=== PATIENT | male | born 1960 | race Caucasian/White ===

== ENCOUNTER 2016-11-23 06:49 | Emergency (ER) | payer OTHER ==
[2016-05-15 10:47] VITALS: BMI 33.4
[~2016-11-23 06:49] MED LIST: BAYER CHEWABLE81 MG PO; COREG 3.1253.125 MG PO; HYDROCODON-ACE1 EAC7 PO; IBUPROFEN800 MG PO; PLAVIX75 MG PO; ZANTAC150 MG PO; ZOCOR40 MG PO
[2016-11-23 07:21] LABS: BASOPHILS 0.6 % (0-2); EOSINOPHILS 3.4 % (0-7); HEMATOCRIT 55.8 % (42.0-54.0); HEMOGLOBIN 19.3 g/dL (13.5-17.5); IMMATURE GRANULOCYTES 0.3 % (0-5); LYMPHOCYTES 34.6 % (15-50); MCH 33.4 pg (26.0-34.0); MCHC 34.6 g/dL (31.0-37.0); MCV 96.7 fL (80.0-100.0); MEAN PLATELET VOLUME 10.2 fL (7.4-10.4); MONOCYTES 16.1 % (2-11); PLATELET COUNT 180 10x3/uL (130-400); RBC 5.77 10x6/uL (4.20-6.10); RDW 12.7 % (11.5-14.5)
[2016-11-23 07:37] LABS: ALBUMIN 3.3 g/dL (3.4-5.0); ALKALINE PHOSPHATASE 124 U/L (46-116); ALT (SGPT) 91 U/L (10-68); BILIRUBIN - TOTAL 0.69 mg/dL (0.2-1.3); CALC OSMOLALITY 278 mosm/kg (275-300); CALCIUM 8.9 mg/dL (8.5-10.1); CARBON DIOXIDE 25.6 mmol/L (21.0-32.0); CHLORIDE - SERUM 105 mmol/L (98-107); CREATININE - SERUM 1.4 mg/dL (0.6-1.3); GLUCOSE 113 mg/dL (74-106); POTASSIUM - SERUM 3.9 mmol/L (3.5-5.1); PROTEIN - SERUM 6.8 g/dL (6.4-8.2); SODIUM 138 mmol/L (136-145); UREA NITROGEN 19 mg/dL (7-18); eGFR NON AFRICAN AMERICAN 56 mL/min (90-120)
[2016-11-23 07:52] LABS: CHOL - HDL RATIO 2.8 ratio (2.3-4.9); CHOLESTEROL, TOTAL 144 mg/dL (0-200); CKMB 3.5 U/L (0.0-3.6); CREATINE KINASE 210 UL (21-232); HDL CHOLESTEROL 51 mg/dL (32-96); LDL CHOLESTEROL 75 mg/dL (0-100); LDL-HDL RATIO 1.5 ratio (1.5-3.5); TRIGLYCERIDE 91 mg/dL (30-200); TROPONIN-I < 0.017 ng/mL (0.000-0.060)
== END 2016-11-23 09:22 | disposition home or self-care (01) ==
LOC: D.ER 06:49
PROVIDERS: Emergency Medicine
DX: I20.8 Other forms of angina pectoris (principal)

== ENCOUNTER 2016-11-24 20:43 | Observation (INO) | payer OTHER ==
[~2016-11-24] VITALS: Ht 172.7 cm; Wt 97.7 kg
--- NOTE | ~2016-11-24 | HP ---
PATIENT: JILLIAN TINSLEY MEDICAL RECORD: [id number] ACCOUNT: [id number] LOCATION:[address] : [birth year] ADMISSION DATE: 11/24/16 HISTORY AND PHYSICAL EXAMINATION HISTORY OF PRESENT ILLNESS: This patient is a 56-year-old gentleman with a history of coronary artery disease status post intervention most recently percutaneous transluminal coronary angioplasty and stenting to the right. He has a history of hypertension. He has been having intermittent chest tightness and pressure. He is recovering from recent bronchitis. He has had a history of restenosis in the past. We were asked to see him concerning his cardiovascular status. PAST MEDICAL HISTORY: History of coronary artery disease as described above. Hypertension. Hyperlipidemia. Osteoarthritis. Gastroesophageal reflux disease. CURRENT MEDICATIONS: Plavix 75 milligrams every day. Carvedilol 3.125 milligrams twice a day. Simvastatin 40 milligrams every day. Aspirin 81 milligrams every day. [place] 5/325 milligrams every day. Motrin 800 milligrams three times a day. Zantac 150 milligrams every day. SOCIAL HISTORY: He is . He lives here in [place]. No set exercise program. He stays active. REVIEW OF SYSTEMS: Standard. PHYSICAL EXAMINATION: GENERAL: This is a pleasant gentleman in no acute distress. He appears stated age. He is complaining of headache from nitroglycerin. VITAL SIGNS: Blood pressure 116/65. Pulse 71 and regular. HEAD, EYES, EARS, NOSE, AND THROAT: Normocephalic, atraumatic. NECK: No jugular venous distention or bruit. HEART: Regular. LUNGS: Lung gomez clear. ABDOMEN: Soft, nontender. PULSES: 2+ with no edema. NEUROLOGIC: Grossly intact. ELECTROCARDIOGRAM: Without acute change. IMPRESSION AND PLAN: Recurrent angina within window of restenosis. Non-medicated stent most recently. Plan for angiography with intervention based upon the above. HISTORY AND PHYSICAL [id number] LAUREANOJILLIAN CURRY DEE DEE ESQUEDA MD CC: [id number] DICTATION DATE: 11/25/16 1200 CLAIMS TECHNICIAN: DM 11/25/16 1503 DIS IN 11/25/16 [facility] [address] [place] [address]
--- NOTE | ~2016-11-24 | HEMODYNAMI ---
PATIENT:JILLIAN TINSLEY MEDICAL RECORD: [id number] : 62 LOCATION:[facility] D.2119 ADMISSION DATE: 11/24/16 Generatedon:11/25/201610:36 Patient name: JILLIAN TINSLEY Patient #: [id number] SSN: [id number] : 1960 Date of study: 11/25/2016 Page: Of Hemodynamic Procedure Report Patient Data Patient Demographics Procedure consent was obtained First Name: JILLIAN Gender: Male Last Name: LAUREANO : 1960 Patient #: [id number] Age: 56 year(s) Race: SSN: [id number] Additional ID: [id number] Contact details [address]: [address] [place] [address] State: [place] City: [place] Zip code: [address] Past Medical History Allergies: No known allergies Admission Admission Data Admission Date: 11/24/2016 Admission Time: 23:41 Admit Source: Other Room #: D.2119 Height (in.): 68 BSA: 2.11 (m2) Height (cm.): 172.72 BMI: 32.75 (kg/m2) Weight (lbs.): 215.39 Weight (kg.): 97.7 Lab Results Lab Result Date: 11/25/2016 Lab Result Time: 0:00 Biochemistry Name Units Result Min Max BUN mg/dl 13 --(--*-)-- 7 18 Creatinine mg/dl 1.2 --(---*)-- 0.6 1.3 CBC Name Units Result Min Max Hemoglobin g/dl 17.1 --(---*)-- 13.5 17.5 Procedure Procedure Types Cath Procedure Diagnostic Procedure C [facility] w/Coronaries Miscellaneous Procedures Moderate Sedation up to 15 minutes Procedure Description Procedure Date Procedure Date: 11/25/2016 Procedure Start Time: 10:20 Procedure End Time: 10:33 Procedure Staff Name Function Kodak Manning MD Performing Physician Aries Boyer RT Scrub Divya Guerra RN Nurse Gena Kauffman RT Monitor Jimmy Mcgee RN Visitor Services Information Assistant Procedure Data Cath Procedure Fluoroscopy Diagnostic fluoroscopy Total fluoroscopy Time: 2.8 time: 2.8 min min Diagnostic fluoroscopy Total fluoroscopy dose: 630 dose: 630 mGy mGy Contrast Material Contrast Material Type Amount (ml) Isovue 300 114 Entry Location Entry Primary Successful Side Size Upsize Upsize Entry Closure Succes sful Closure Location (Fr) 1 (Fr) 2 (Fr) Remarks Device Remarks Femoral Right 5 Fr Exoseal artery Estimated blood loss: 10 ml Diagnostic catheters Device Type Used For End Catheter Placement Cordis 5Fr JL 4.0 Procedure Catheter (MP) Cordis 5Fr 3DRC Catheter Left Coronary (MP) Angiography Cordis 5Fr Pigtail Procedure Catheter (MP) Diagnostic Infinity 5Fr Procedure AR 2 MOD catheter Procedure Complications No complications Procedure Medications Medication Administration Route Dosage Oxygen NC 2 l/min Lidocaine 2% added to field 20 Heparin Flush Bag added to field 2 bags (1000units/500ml NS) Plavix P.O. 75 mg Versed I.V. 1 mg Fentanyl I.V. 50 mcg Versed I.V. 0.5 mg Solumedrol I.V. 125 mg Hemodynamics Rest BSA: 2.11 (m2) HGB: 17.1 (g/dl) O2 Consumption: Estimated: 243.15 (ml/min) O2 Co nsumption indexed: Estimated:115.24 (ml/min/m) Heart Rate: 61 (bpm) Pressure Samples Time Site Value (mmHg) Purpose Heart Use Rate(bpm) 10:27 LV 127/-6,13 Snapshot 81 10:28 AO 113/66(87) Pullback 81 10:28 LV 131/-6,16 Pullback 81 Gradients Valve Time Site 1 Site 2 Mean SEP/DFP Peak To Heart Use (mmHg) (sec/min) Peak Rate (mmHg) (bpm) Aortic 10:28 LV AO 16 19 18 81 131/-6,16 113/66(87) Calculations Valve P-P Mean Valve Index Valve Source Name Gradient Area Flow (cm2) Aortic 18 16 18 16 Snapshots Pre Cath Intra NCS Post Cath Vital Signs Time Heart Resp SPO2 etCO2 [id number] NIBP (mmHg) Rhythm Pain Sedation Rate (ipm) (%) (mmHg) (mmHg) Status Level (bpm) 10:09:44 68 19 94 0 0 127/83(102) NSR 0 (11) 10(A) , No pain 10:14:05 63 22 97 0 0 133/76(81) NSR 0 (11) 10(A) , No pain 10:18:23 59 16 97 0 0 111/66(80) NSR 0 (11) 10(A) , No pain 10:22:32 63 16 96 0 0 128/74(105) NSR 0 (11) 9(A) , No pain 10:26:46 84 16 95 0 0 149/79(94) NSR 0 (11) 9(A) , No pain 10:31:00 80 16 98 0 0 127/83(104) NSR 0 (11) 9(A) , No pain 10:32:33 78 16 98 0 0 126/76(102) NSR 0 (11) 9(A) , No pain Medications Time Medication Route Dose Verified Delivered Reason Notes Ef fectiveness by by 10:01:39 Plavix P.O. 75 mg Kodak Divya for St. Jadiel Guerra RN antiplatelet therapy 10:09:14 Oxygen NC 2 Kodak Divya Per l/min St. Jadiel Guerra RN physician 10:09:23 Lidocaine 2% added 20ml Kodak Kodak used for to vial Nigel Grundy procedure field MD EARLY 10:09:31 Heparin Flush added 2 Kodak Kodak [facility] (1000[facility]/500ml field MD EARLY NS) 10:19:02 Versed I.V. 1 mg Kodak Divya for sedation St. Jadiel Guerra RN, MD 10:19:20 Fentanyl I.V. 50 Kodak Divya for sedation mcg St. Jadiel Guerra RN, MD 10:21:41 Versed I.V. 0.5 Kodak Divya for sedation mg St. Jadiel Guerra RN, MD 10:31:13 Solumedrol I.V. 125 Kodak Divya Per mg [facility] Jadiel Guerra RN physician Procedure Log Time Note 9:30:26 Jimmy Mcgee RN sent for patient. Start room use. 9:55:45 Lab Result : BUN 13 mg/dl 9:55:45 Lab Result : Hemoglobin 17.1 g/dl 9:55:45 Lab Result : Creatinine 1.2 mg/dl 9:55:48 Lab results completed and on chart. 9:56:21 ACC Patient presents with Unstable Angina CCS Anginal Class 3--Marked limitation of physical activity, angina occurs with ordinary activity.. 9:56:24 Diagnostic Cath status Urgent 9:56:37 Time tracking: Regular hours 9:56:42 Plan of Care:Hemodynamics will remain stable., Cardiac rhythm will remain stable., Comfort level will be maintained., Respiratory function will remain adequate., Patient/ family verbilizes understanding of procedure., Procedure tolerated without complication., Recovers from procedure without complications.. 10:00:49 Patient received from Med II to CCL 1 Alert and oriented. Tansferred to table in Supine position. 10:00:50 Warm blankets applied, and sloan hugger turned on for patient comfort. 10:00:51 Correct patient and procedure confirmed by team. 10:00:54 Signed procedure consent form obtained from patient. 10:01:04 H&P Date Dictated: 11/24/2016 Within 30 days and on chart.. 10:01:09 Family in waiting room. 10:01:13 Patient NPO since Midnight. 10:01:30 Is the patient allergic to Iodine/contrast media? No. 10:01:34 Is patient on blood thinner?Yes 10:01:39 Plavix 75 mg P.O. was administered by Divya Guerra RN; for antiplatelet therapy; 10:01:39 ACC The patient was administered the following blood thiners within the last 24 hours: ACCPlavix 10:01:42 Patient diabetic? No. 10:01:52 Snore? Yes 10:01:54 Sleep apnea? No 10:02:28 Patient pain scale 0/10 ?. 10:02:37 Patient pain scale 5/10 pressure. 10:02:56 IV patent on arrival in right antecubital with 0.9% NaCl at O. 10:03:07 Right groin area was prepped with chlora-prep and draped in sterile fashion 10:03:10 Alarms reviewed by R. N. 10:03:11 Sharps counted by scrub and verified by R.N. 10:08:44 Vital chart was started 10:09:14 Oxygen 2 l/min NC was administered by Divya Guerra RN; Per physician; 10::23 Lidocaine 2% 20ml vial added to field was administered by Kodak Manning MD; used for procedure; 10:09:31 Heparin Flush Bag (1000units/500ml NS) 2 bags added to field was administered by Kodak Manning MD; used for procedure; 10:11:34 ECG and BP/O2 sat monitors applied to patient. 10:11:35 Baseline sample Acquired. 10::40 Full Disclosure recording started 10::44 Physician arrived 10:13:20 Use device set Femoral Dx 10:13:22 Acist Syringe opened to sterile field. 10:13:22 Bag Decanter opened to sterile field. 10:13:23 Medline Cath Pack opened to sterile field. 10:13:23 Terumo 5Fr Alto Sheath opened to sterile field. 10:13:23 St Luis 260cm J .035 wire opened to sterile field. 10:13:25 Acist Hand Control opened to sterile field. 10:13:25 Acist Manifold opened to sterile field. 10:13:27 Diagnostic Infinity 5Fr Multipack catheter opened to sterile field. 10:13:28 Tegaderm 4 x 4 opened to sterile field. 10:14:30 Patient Height : 68 cm 10:14:37 Patient Weight : 215.39 kg 10:14:43 Admit Source: Other 10:14:59 Procedure type changed to Cath procedure, Diagnostic procedure, LHC, LHC w/Coronaries, Miscellaneous Procedures, Moderate Sedation up to 15 minutes 10:18:53 --------ALL STOP TIME OUT------ 10:18:54 Final Timeout: patient, procedure, and site verified with staff and physician. All members of the team are in agreement. 10:18:57 Right groin site verified by team. 10:19:02 Versed 1 mg I.V. was administered by Divya Guerra RN; for sedation; 10:19:02 Sedation plan: IV Moderate Sedation Versed, Fentanyl 10:19:06 Physical assessment completed. ASA score P 2 - A patient with mild systemic disease as per Kodak Manning MD. 10:19:11 Zero performed for pressure channel P1 10:19:20 Fentanyl 50 mcg I.V. was administered by Divya Guerra RN; for sedation; 10:19:51 Procedure started. 10:20:14 Local anesthetic to right femoral artery with Lidocaine 2% by Kodak Manning MD.INITIAL ACCESS ONLY 10:20:44 A 5 Fr sheath was inserted into the Right Femoral artery 10:21:33 A Cordis 5Fr JL 4.0 Catheter (MP) was advanced over the wire and used for Procedure. 10:21:35 LCA angiography performed. 10:21:41 Versed 0.5 mg I.V. was administered by Divya Guerra RN; for sedation; 10:23:37 Catheter removed. 10:23:49 A Cordis 5Fr 3DRC Catheter (MP) was advanced over the wire and used for Left Coronary Angiography. 10:24:45 RCA angiography performed. 10:27:15 Catheter removed. 10:27:24 A Cordis 5Fr Pigtail Catheter (MP) was advanced over the wire and used for Procedure. 10:27:49 EF : 55 % 10:28:08 Catheter removed. 10:28:53 A Diagnostic Infinity 5Fr AR 2 MOD catheter was advanced over the wire and used for Procedure. 10:28:57 RCA angiography performed. 10:29:22 Catheter removed. 10:29:44 Cordis 5Fr Exoseal opened to sterile field. 10:30:09 Sheath removed intact; hemostasis achieved with Exoseal to the Right Femoral artery. 10:31:10 Procedure ended.(Physican Out) 10:31:13 Solumedrol 125 mg I.V. was administered by Divya Guerra RN; Per physician; 10:31:22 Fluoroscopy time 02.80 minutes. 10:31:30 Flurop Dose total: 630 10:31:30 Fluoroscopy dose: 630 mGy 10:31:45 Contrast amount:Isovue 300 114ml. 10:31:52 Sharps counted by scrub and verified by R.N. 10:31:55 Insertion/operative site no bleeding no hematoma. 10:31:58 Post-op/insertion site Right Femoral artery dressed using a 4 x 4 and Tegaderm. 10:32:04 Post right femoral artery:stable 10:32:07 Post Procedure Pulses reassessed and unchanged 10:32:11 Post-procedure physical assessment completed. ASA score P 2 - A patient with mild systemic disease as per Kodak Manning MD. 10:32:15 Post procedure rhythm: unchanged. 10:32:19 Estimated blood loss: 10 ml 10:32:21 Post procedure instruction explained to patient.Patient verbalizes understanding. 10:32:40 Procedure and supply charges have been captured, reviewed, submitted and are correct. 10:33:02 Procedure Complication : No complications 10:33:06 Vital chart was stopped 10:33:07 See physician's report for complete and final results. 10:33:09 Report given to [facility]. 10:33:16 Patient transfered to [facility] with Bed. 10:33:27 Procedure ended. 10:33:27 Full Disclosure recording stopped 10:33:30 End room use (Document Last) Device Usage Item Name Manufacture Quantity Catalog Hospital Part Current Minimal Lo t# / Number Charge Number Stock Stock Serial# Code Acist Acist 1 [id number] [id number] [id number] [id number] 20 Syringe Medical [employer] Inc Bag Microtek 1 2002S 158539 83516 888852 5 Decanter Medical Inc. Medline Cardinal 1 [id number] 007383 10761 803099 5 Cath Pack Health Terumo 5Fr Terumo 1 [id number] 018142 333786 913727 [address] Luis 1 360409 390919 385778 910980 30 260cm J .035 wire Acist Hand Acist 1 03393 754017 118844 562131 5 Control [employer] Inc Acist Acist 1 32460 816964 456762 678893 5 Manifold Medical Systems Inc Diagnostic Cardinal 1 [id number] 248237 60078 577075 30 Infinity Health 5Fr Multipack catheter Tegaderm 4 3M 1 1626W 560774 270582 494851 5 x 4 Cordis 5Fr Cardinal 1 438900 5 JL 4.0 Health Catheter (MP) Cordis 5Fr Cardinal 1 649570 5 3DRC Health Catheter (MP) Cordis 5Fr Cardinal 1 575224 5 Pigtail Health Catheter (MP) Diagnostic Cardinal 1 [id number] 048141 629969 666560 20 Infinity Health 5Fr AR 2 MOD catheter Cordis 5Fr Cardinal 1 EX500 014162 599972 058170 10 [employer] Signature Audit Touchet Stage Time Signature Unsigned Intra-Procedure 11/25/2016 Gena Kauffman 10:36:44 AM RT(R) Signatures Monitor : Gena Kauffman Signature : RT Date : Time : [place] [place] [address]
--- NOTE | ~2016-11-24 | OP ---
PATIENT NAME: JILLIAN TINSLEY MEDICAL RECORD: [id number] :62 LOCATION:D.M2 D.2119 ADMISSION DATE:11/24/16 SURGEON: DEE DEE ESQUEDA MD DATE OF PROCEDURE: 11/25/2016 PROCEDURES: Left heart catheterization. Selective coronary angiography. PROCEDURE IN DETAIL: After informed consent was obtained and after detailed explanation of risks, benefits, as well as alternative therapies, the patient elected to proceed with angiogram. The right femoral area was prepped and draped in a normal sterile fashion. The right femoral artery was cannulated via modified Seldinger technique with placement of 5-Greek sheath. All catheters exchanged through this sheath. 5-4 left and right Jossie, 5-4 pigtail catheter. The procedure was tolerated, and the patient was returned to the sullivan after the sheath was removed ExoSeal device placed. FINDINGS: Left ventriculography was performed in standard 30 degree SWEET view, normal wall motion, normal systolic function. CORONARY ANATOMY: LEFT MAIN: The left main was free of disease. LEFT ANTERIOR DESCENDING: The left anterior descending area of previous stenting is widely patent without evidence of restenosis. No progression of disease. CIRCUMFLEX: This is a left dominant system. This shows no evidence of restenosis. No progression of disease. RIGHT CORONARY ARTERY: Rudimentary nondominant vessel free of disease. IMPRESSION: Normal left ventricular function. No evidence of restenosis. No progression of major disease. Noncardiac etiology of chest pain. DEE DEE ESQUEDA MD CC: [id number] DICTATION DATE: 11/25/16 2300 CAREER AND GUIDANCE COUNSELOR: DM 11/25/16 1506 DIS IN 11/25/16 [facility] [address] [place] [address]
[2016-11-24 21:40] LABS: BASOPHILS 0.2 % (0-2); EOSINOPHILS 1.8 % (0-7); HEMATOCRIT 49.9 % (42.0-54.0); IMMATURE GRANULOCYTES 0.2 % (0-5); LYMPHOCYTES 23.5 % (15-50); MCH 33.1 pg (26.0-34.0); MCHC 34.1 g/dL (31.0-37.0); MCV 97.3 fL (80.0-100.0); MEAN PLATELET VOLUME 10.5 fL (7.4-10.4); MONOCYTES 16.5 % (2-11); NEUTROPHILS 57.8 % (40-80); PLATELET COUNT 153 10x3/uL (130-400); RBC 5.13 10x6/uL (4.20-6.10); RDW 12.6 % (11.5-14.5); WBC 9.8 10x3/uL (4.8-10.8)
[2016-11-24 21:58] LABS: ALBUMIN 2.9 g/dL (3.4-5.0); ALKALINE PHOSPHATASE 124 U/L (46-116); ALT (SGPT) 69 U/L (10-68); CALC OSMOLALITY 282 mosm/kg (275-300); CALCIUM 8.5 mg/dL (8.5-10.1); CARBON DIOXIDE 30.3 mmol/L (21.0-32.0); CHLORIDE - SERUM 106 mmol/L (98-107); CREATININE - SERUM 1.2 mg/dL (0.6-1.3); GLUCOSE 104 mg/dL (74-106); POTASSIUM - SERUM 3.8 mmol/L (3.5-5.1); PROTEIN - SERUM 6.2 g/dL (6.4-8.2); SODIUM 142 mmol/L (136-145); UREA NITROGEN 13 mg/dL (7-18); eGFR NON AFRICAN AMERICAN 67 mL/min (90-120)
[2016-11-24 22:09] LABS: CHOL - HDL RATIO 3.1 ratio (2.3-4.9); CHOLESTEROL, TOTAL 147 mg/dL (0-200); CKMB 1.3 U/L (0.0-3.6); CREATINE KINASE 128 UL (21-232); HDL CHOLESTEROL 48 mg/dL (32-96); LDL CHOLESTEROL 79 mg/dL (0-100); LDL-HDL RATIO 1.6 ratio (1.5-3.5); TRIGLYCERIDE 103 mg/dL (30-200); TROPONIN-I < 0.017 ng/mL (0.000-0.060)
--- NOTE | 2016-11-25 00:58 | NUR ---
ADMIT TO ROOM 2119 @ 0015 FROM ER VIA STRETCHER. ACCOMPANIED BY SPOUSE. ALERT/ORIENTED TO PERSON/PLACE AND TIME BUT VERY MEDICATED FROM JUST RECEIVING IV MORPHINE WHILE IN ER. ASSISTED TO BED. ADMISSION HISTORY AND ASSESSMENT COMPLETED WITH MINIMAL INPUT FROM PT DUE TO BEING MEDICATED AND HIS LEFT SOON HE WAS PLACED IN ROOM. TELEMETRY STARTED. SR 81. CALL LIGHT IN REACH.
[2016-11-25 01:09] VITALS: BP 115/56; Ht 172.7 cm; Wt 97.7 kg
[2016-11-25 04:00] VITALS: BP 116/65
[2016-11-25 08:54] LABS: BASOPHILS 0.2 % (0-2); EOSINOPHILS 1.5 % (0-7); HEMATOCRIT 50.6 % (42.0-54.0); HEMOGLOBIN 17.1 g/dL (13.5-17.5); IMMATURE GRANULOCYTES 0.3 % (0-5); LYMPHOCYTES 20.8 % (15-50); MCH 33.3 pg (26.0-34.0); MCHC 33.8 g/dL (31.0-37.0); MCV 98.4 fL (80.0-100.0); MEAN PLATELET VOLUME 11.4 fL (7.4-10.4); MONOCYTES 13.9 % (2-11); NEUTROPHILS 63.3 % (40-80); PLATELET COUNT 159 10x3/uL (130-400); RBC 5.14 10x6/uL (4.20-6.10); RDW 12.7 % (11.5-14.5)
[2016-11-25 08:56] LABS: WBC 12.5 10x3/uL (4.8-10.8)
[2016-11-25 09:13] VITALS: BP 128/78
--- NOTE | 2016-11-25 09:23 | NUR ---
Patient Name: JILLIAN TINSLEY Admission Status: ER Accout number: [id number] Admission Date: 11-24-2016 : 1960 Admission Diagnosis: Attending: ALYSSA Current LOS: 1 Anticipated DC Date: 11-25-2016 Planned Disposition: Home Primary Insurance: [employer] Discharge Planning Comments: * Is the patient Alert and Oriented? Yes 0 * How many steps to enter\exit or inside your home? NONE 0 * PCP [facility] SHAH, [facility] 0 * Pharmacy [facility] 0 * Preadmission Environment Home with Family 0 * ADLs Independent 0 * Equipment None 0 * Other Equipment [facility] 0 * List name and contact numbers for known caregivers / representatives who currently or will assist patient after discharge: DONA TINSLEY, SPOUSE, 0 * Community resources currently utilized None 0 * Please name any agencies selected above. NONE 0 * Additional services required to return to the preadmission environment? No 0 * Can the patient safely return to the preadmission environment? Yes 0 * Has this patient been hospitalized within the prior 30 days at any hospital? No 0 CM MET WITH PT AND SPOUSE IN ROOM TO DISCUSS DISCHARGE PLANNING AND NEEDS. PT SLEEPING, SPOUSE REPORTS PT TO BE MEDICATED. PT'S SPOUSE REPORTS PT LIVING AT HOME INDEPENDENTLY WITH SPOUSE. PT HAS NO MEDICAL EQUIPMENT AND NO OUTSIDE SERVICES ASSISTING IN THE HOME. CM DISCUSSED AVAILABILITY OF HOME HEALTH, REHAB SERVICES AND MEDICAL EQUIPMENT. PT'S SPOUSE DENIES DISCHARGE NEEDS, REPORTS SHE WILL BE TRANSPORTING PT FOR DISCHARGE HOME. CM DISCUSSED HAVING PT PLACED ON [facility] TRANSFER LIST FOR TRANSFER TO [facility]; PT'S SPOUSE REPORTS THAT REGISTRATION DISCUSSED THIS WITH THEM IN THE EMERGENCY DEPARTMENT AND PT DID NOT WANT TRANSFER TO [facility] AT ALL. PT REFUSES TO BE PLACED ON [facility] TRANSFER LIST, PLANS DISCHARGE HOME WITH SPOUSE. CM TO FOLLOW AND ASSIST IF NEEDED. Atmospheric Chemist: Sonny Nicholson
[2016-11-25 09:30] LABS: ANION GAP 14.8 mmol/L (8-16); CALCIUM 8.5 mg/dL (8.5-10.1); CARBON DIOXIDE 23.1 mmol/L (21.0-32.0); CREATININE - SERUM 1.1 mg/dL (0.6-1.3); POTASSIUM - SERUM 3.9 mmol/L (3.5-5.1)
--- NOTE | 2016-11-25 09:50 | NUR ---
PRE-OPS GIVEN. TO WINDING INSPECTOR BY BED.
[2016-11-25] MEDS ORDERED: MEDROL DOSE PACK4 MG PO (10:55)
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
[2016-11-25 11:59] VITALS: BP 119/72
--- NOTE | 2016-11-25 12:42 | NUR ---
BED REST UP. GROIN STABLE.
--- NOTE | 2016-11-25 13:13 | NUR ---
IV AND TELEMETRY DCD. DC PLANS GIVEN. UNDERSTANDING VOICED. ESCORTED TO CAR BY W/C.
== END 2016-11-25 13:13 | disposition home or self-care (01) ==
LOC: D.ER 20:43 → D.M2 23:41 → OBSVTIME 23:42 → D.M2 11-25 13:13
PROVIDERS: Emergency Medicine; ADMIT Internal Medicine Interventional Cardiology
DX: R07.89 Other chest pain (principal); I25.10 Atherosclerotic heart disease of native coronary artery without angina pectoris; Z95.5 Presence of coronary angioplasty implant and graft; I10 Essential (primary) hypertension; E78.5 Hyperlipidemia, unspecified; K21.9 Gastro-esophageal reflux disease without esophagitis; Z87.891 Personal history of nicotine dependence

== ENCOUNTER 2017-06-26 23:22 | Observation (INO) | payer SELFPAY ==
--- NOTE | ~2017-06-26 | HEMODYNAMI ---
PATIENT:JILLIAN TINSLEY MEDICAL RECORD: [id number] : 62 LOCATION:[facility] D.2102 ADMISSION DATE: 06/27/17 Generatedon:06/27/201713:38 Patient name: JILLIAN TINSLEY Patient #: [id number] SSN: [id number] : 1960 Date of study: 06/27/2017 Page: Of Hemodynamic Procedure Report Patient Data Patient Demographics Procedure consent was obtained First Name: JILLIAN Gender: Male Last Name: LAUREANO : 1960 Patient #: [id number] Age: 57 year(s) Race: SSN: [id number] Additional ID: [id number] Contact details Address: [address] [place] [address] State: [place] City: [place] Zip code: [address] Past Medical History Allergies: No known allergies Admission Admission Data Admission Date: 06/27/2017 Admission Time: 4:32 Room #: 2102 Procedure Procedure Types Cath Procedure Diagnostic Procedure [facility] w/Coronaries PCI Procedure Coronary Stent Coronary Stent Initial Procedure Description Procedure Date Procedure Date: 06/27/2017 Procedure Start Time: 13:18 Procedure End Time: 13:36 Procedure Staff Name Function Arben Erickson MD Performing Physician Sagrario Fam RT Scrub Danitza Brasher RN Nurse Gena Kauffman RT Monitor Katrina Nieto RT Lockstitcher Procedure Data Cath Procedure Fluoroscopy Diagnostic fluoroscopy Total fluoroscopy Time: 4.8 time: 4.8 min min Contrast Material Contrast Material Type Amount (ml) Isovue 300 82 Entry Location Entry Primary Successful Side Size Upsize Upsize Entry Closure Succes sful Closure Location (Fr) 1 (Fr) 2 (Fr) Remarks Device Remarks Femoral Right 5 Fr 6 Fr Exoseal artery Short Estimated blood loss: 10 ml Diagnostic catheters Device Type Used For End Catheter Placement MULTIPACK Pigtail 5 Fr Procedure catheter MULTIPACK JL 4.0 5Fr Procedure catheter MULTIPACK 3DRC 5Fr Procedure catheter Procedure Complications No complications Procedure Medications Medication Administration Route Dosage Oxygen NC 2 l/min Lidocaine 2% added to field 20 Heparin Flush Bag added to field 2 bags (1000units/500ml NS) 0.9% NaCl I.V. 100 ml/hr Versed I.V. 1 mg Fentanyl I.V. 50 mcg Heparin Bolus I.V. 4000 units Versed I.V. 1 mg Fentanyl I.V. 50 mcg Hemodynamics Rest Pre Cath Intra NCS Post Cath Vital Signs Time Heart Resp SPO2 etCO2 NIBP (mmHg) Rhythm Pain Sedation Rate (ipm) (%) (mmHg) Status Level (bpm) 13:13:38 64 16 93 41.7 129/72(109) NSR 0 (11) 10(A) , No pain 13:17:48 64 18 96 37.2 125/78(101) NSR 0 (11) 10(A) , No pain 13:22:08 77 15 95 43.2 125/80(111) NSR 0 (11) 10(A) , No pain 13:27:22 80 16 94 18.2 138/92(118) NSR 0 (11) 9(A) , No pain 13:32:27 82 16 93 22.8 123/80(97) NSR 0 (11) 9(A) , No pain 13:37:28 83 17 93 15.1 125/79(100) NSR 0 (11) 10(A) , No pain Medications Time Medication Route Dose Verified Delivered Reason Notes Effectiveness by by 13:12:38 Oxygen NC 2 Arben Bosch used for l/min Georgian Brasher RN procedure 13:12:45 Lidocaine 2% added 20ml Arben Theodore for local to vial Georgina Erickson MD anesthetic field 13:12:51 Heparin Flush added 2 Arben Arben used for Bag to bags Georgina Erickson MD procedure (1000units/500ml field NS) 13:13:00 0.9% NaCl I.V. 100 Arben Buffie Per physician ml/hr Georgina Brasher RN 13:18:42 Versed I.V. 1 mg Arben Reaie for sedation Georgina Brasher RN 13:18:48 Fentanyl I.V. 50 Arben Álvaroie for sedation mcg Georgina Brasher RN 13:23:10 Heparin Bolus I.V. 4000 Arben Buffie for verifi ed units Georgina Brasher RN anticoagulation with dr erickson 13:27:34 Versed I.V. 1 mg Arben Bosch for sedation Georgina Brasher RN 13:27:37 Fentanyl I.V. 50 Arben Bosch for sedation mcg Georgina Brasher RN Procedure Log Time Note 12:54:39 Sagrario Fam RT(R) sent for patient. Start room use. 12:54:54 Time tracking: Regular hours 12:55:00 Plan of Care:Hemodynamics will remain stable., Cardiac rhythm will remain stable., Comfort level will be maintained., Respiratory function will remain adequate., Patient/ family verbilizes understanding of procedure., Procedure tolerated without complication., Recovers from procedure without complications.. 13:02:26 Patient received from Med II to CCL 2 Alert and oriented. Tansferred to table in Supine position. 13:02:28 Warm blankets applied, and sloan hugger turned on for patient comfort. 13:02:28 Correct patient and procedure confirmed by team. 13:02:30 Signed procedure consent form obtained from patient. 13:02:41 H&P Date Dictated: 06/27/2017 Within 30 days and on chart.. 13:02:43 Pre-procedure instructions explained to patient. 13:02:48 Family in patients room. 13:02:55 Patient NPO since Midnight. 13:03:18 Patient allergic to No known allergies 13:03:20 Is the patient allergic to Iodine/contrast media? No. 13:03:22 Was the patient premedicated? Yes 13:03:47 Is patient on blood thinner?Yes 13:03:50 ACC The patient was administered the following blood thiners within the last 24 hours: ACCPlavix 13:10:12 Patient diabetic? No. 13:10:16 Snore? Yes 13:10:17 Sleep apnea? No 13:10:22 Dentures? No ? 13:10:28 Patient pain scale 0/10 ?. 13:10:34 IV patent on arrival in left forearm with 0.9% NaCl at KVO. 13:10:39 Lab results completed and on chart. 13:10:45 Right groin area was prepped with chlora-prep and draped in sterile fashion 13:10:47 Alarms reviewed by R. N. 13:10:47 Sharps counted by scrub and verified by R.N. 13:10:48 Physician paged 13:12:28 Vital chart was started 13:12:38 Oxygen 2 l/min NC was administered by Danitza Brasher RN; used for procedure; 13:12:45 Lidocaine 2% 20ml vial added to field was administered by Arben Erickson MD; for local anesthetic; 13:12:51 Heparin Flush Bag (1000units/500ml NS) 2 bags added to field was administered by Arben Erickson MD; used for procedure; 13:13:00 0.9% NaCl 100 ml/hr I.V. was administered by Danitza Brasher RN; Per physician; 13:13:34 Use device set Femoral Dx 13:13:36 ACIST Syringe (38178) opened to sterile field. 13:13:36 Bag Decanter (2002S) opened to sterile field. 13:13:37 Medline Cath Pack ([id number]) opened to sterile field. 13:13:37 SHEATH 5FR [place] (BUS174) opened to sterile field. 13:13:38 DIAGNOSTIC WIRE .035 260cm J wire (113478) opened to sterile field. 13:13:40 ACIST Hand Control (23709) opened to sterile field. 13:13:40 ACIST Manifold (24951) opened to sterile field. 13:13:41 DIAGNOSTIC Multipack 5Fr catheter set (HB9572) opened to sterile field. 13:13:42 Tegaderm 4 x 4 (1626W) opened to sterile field. 13:16:38 Zero performed for pressure channel P1 13:16:43 Zero performed for pressure channel P1 13:16:50 Zero performed for pressure channel P1 13:16:58 Zero performed for pressure channel P1 13:17:31 Physician arrived 13:17:31 --------ALL STOP TIME OUT------ 13:17:32 Final Timeout: patient, procedure, and site verified with staff and physician. All members of the team are in agreement. 13:17:34 Right groin site verified by team. 13:17:37 Physical assessment completed. ASA score P 2 - A patient with mild systemic disease as per Arben Erickson MD. 13:17:41 Sedation plan: IV Moderate Sedation Medication:Versed, Fentanyl 13:17:48 Procedure started. 13:17:49 Full Disclosure recording started 13:18:00 A MULTIPACK Pigtail 5 Fr catheter was advanced over the wire and used for Procedure. 13:18:14 Local anesthetic to right femoral artery with Lidocaine 2% by Arben Erickson MD.INITIAL ACCESS ONLY 13:18:25 A 5 Fr sheath was inserted into the Right Femoral artery 13:18:31 Zero performed for pressure channel P1 13:18:42 Versed 1 mg I.V. was administered by Danitza Brasher RN; for sedation; 13:18:48 Fentanyl 50 mcg I.V. was administered by Danitza Brashre RN; for sedation; 13:18:54 LV angiography performed. 13:18:57 LV gram done using SWEET 13:19:48 EF : 50 % 13:20:03 Catheter removed. 13:20:40 A MULTIPACK JL 4.0 5Fr catheter was advanced over the wire and used for Procedure. 13:20:45 LCA angiography performed. 13:21:30 Catheter removed. 13:21:36 A MULTIPACK 3DRC 5Fr catheter was advanced over the wire and used for Procedure. 13:22:53 GUIDE 6FR XBLAD 3.5 catheter ([id number]) opened to sterile field. 13:22:54 CHOICE PT Extra Support 182cm wire ([id number]) opened to sterile field. 13:22:55 INFLATOR Merit BasixCompak (SI1112) opened to sterile field. 13:22:56 SHEATH 6FR [place] (PID679) opened to sterile field. 13:23:00 Catheter removed. 13:23:02 Proceeding to intervention. 13:23:10 Heparin Bolus 4000 units I.V. was administered by Danitza Brasher RN; for anticoagulation; verified with dr erickson 13:23:16 Sheath upsized to a 6 Fr Short. 13:23:38 6 Fr XBLAD3.5 guide catheter was inserted over the wire 13:23:46 choice pt ex wire advanced. 13:23:48 Wire advanced across lesion. 13:26:40 Inflation Number: 1 A YESY RX 2.5 x 15 stent ([id number]) was prepped and advanced across the Mid LAD. The stent was deployed at 13 DEMARIO for 0:09 (min:sec). 13:27:02 EXOSEAL 6Fr (EX600) opened to sterile field. 13:27:34 Versed 1 mg I.V. was administered by Danitza Brasher RN; for sedation; 13:27:37 Fentanyl 50 mcg I.V. was administered by Danitza Brasher RN; for sedation; 13:31:17 Inflation number: 1 The stent balloon was then re-inflated across the Prox LAD to 13 DEMARIO for 0:00 (min:sec). 13:32:34 Inflation number: 1 A EUPHORA 3.5 x 15 Balloon ([id number]) was prepped and advanced across the Prox LAD1, then inflated to 13 DEMARIO for 0:10 (min:sec). 13:33:07 Multiple inflations to prox LAD 13:33:15 Balloon removed over the wire. 13:33:15 Wire removed. 13:33:16 Guide catheter removed. 13:33:25 Sheath removed intact; hemostasis achieved with Exoseal to the Right Femoral artery. 13:34:14 Procedure ended.(Physican Out) 13:34:26 Fluoroscopy time 04.80 minutes. 13:34:46 Contrast amount:Isovue 300 82ml. 13:34:47 Sharps counted by scrub and verified by R.N. 13:34:50 Insertion/operative site no bleeding no hematoma. 13:34:57 Post right femoral artery:stable 13:35:00 Post Procedure Pulses reassessed and unchanged 13:35:08 Post-procedure physical assessment completed. ASA score P 2 - A patient with mild systemic disease as per Arben Erickson MD. 13:35:12 Post procedure rhythm: sinus rhythm 13:35:16 Estimated blood loss: 10 ml 13:35:17 Post procedure instruction explained to patient.Patient verbalizes understanding. 13:35:28 Procedure type changed to Cath procedure, Diagnostic procedure, LHC, LHC w/Coronaries, PCI procedure, Coronary Stent, Coronary Stent Initial 13:35:29 Procedure and supply charges have been captured, reviewed, submitted and are correct. 13:35:52 Procedure Complication : No complications 13:35:55 Vital chart was stopped 13:35:56 See physician's report for complete and final results. 13:35:57 Report given to Pre/Post Procedure Room. 13:36:00 Patient transfered to Pre/Post Procedure Room with Stretcher. 13:36:03 Procedure ended. 13:36:03 Full Disclosure recording stopped 13:36:06 End room use (Document Last) Intervention Summary Intervention Notes Time ActionType Lesion and Equipment Used Action# Pressure Duration Attributes 13:26:40 Place stent Mid LAD YESY RX 2.5 x 1 13 00:09 15 stent ([id number]) 13:31:17 Reinflate Prox LAD YESY RX 2.5 x 1 13 00:00 stent 15 stent balloon ([id number]) 13:32:34 Inflate Prox LAD1 EUPHORA 3.5 x 1 13 00:10 balloon 15 Balloon ([id number]) Device Usage Item Name Manufacture Quantity Catalog Number Hospital Part Current M inimal Lot# / Charge Number Stock Stock Serial# Code ACIST Syringe Acist 1 85490 589239 779432 763495 2 0 (94165) Medical Systems Inc Bag Decanter Microtek 1 468411 92034 729528 5 () Medical Inc. Medline Cath Cardinal 1 [id number] 101992 94469 743917 5 Pack Health ([id number]) SHEATH 5FR Terumo 1 RAP238 588959 209356 677674 4 0 [place] (COF236) DIAGNOSTIC St Luis 1 892860 073169 356931 768431 3 0 WIRE .035 260cm J wire (369806) ACIST Hand Acist 1 35922 972708 931052 951290 5 Control Medical (39672) Systems Inc ACIST Manifold Acist 1 80854 531126 138382 715853 5 (40814) Medical Systems Inc DIAGNOSTIC Cardinal 1 QM9752 034478 70446 427750 3 0 Multipack 5Fr Health catheter set (MX2184) Tegaderm 4 x 4 3M 1 1626W 722308 386642 035432 5 (1626W) MULTIPACK Cardinal 1 086798 5 Pigtail 5 Fr Health catheter MULTIPACK JL Cardinal 1 754041 5 4.0 5Fr Health catheter MULTIPACK 3DRC Cardinal 1 431657 5 5Fr catheter Health GUIDE 6FR Cardinal 1 [id number] 076882 399696 504286 1 0 XBLAD 3.5 Health catheter ([id number]) CHOICE PT Lynndyl 1 [id number] 470634 904286 558823 5 Extra Support Scientific 182cm wire ([id number]) INFLATOR Merit Merit 1 TY0622 773696 235919 146151 1 5 BasixCompak Medical (LC4716) SHEATH 6FR Terumo 1 AMR668 398342 377049 925262 4 0 [place] (FGN458) YESY RX 2.5 x Medtronic 1 [id number] 154685 0230863 898568 5 [id number] 15 stent ([id number]) EXOSEAL 6Fr Cardinal 1 EX600 966048 644921 300984 1 0 (EX600) Health EUPHORA 3.5 x Medtronic 1 [id number] 081215 791560 002303 5 [id number] 15 Balloon ([id number]) Signature Audit [place] Stage Time Signature Unsigned Intra-Procedure 06/27/2017 Gena Kauffman 1:38:13 PM RT(R) Signatures Monitor : Gena Kauffman Signature : RT Date : Time : [place] [address] [place] [address]
--- NOTE | ~2017-06-26 | OP ---
PATIENT NAME: JILLIAN TINSLEY MEDICAL RECORD: [id number] :62 LOCATION:D.M2 D.2102 ADMISSION DATE:06/27/17 SURGEON: ELADIO ORTEGA MD DATE OF OPERATION: 06/27/2017 DATE OF SERVICE: 06/27/2017 PROCEDURES: 1. PTCA stent LAD. 2. Left heart catheterization. 3. Selective coronary angiography. 4. Left ventriculogram. INDICATION: Angina and coronary artery disease. PROCEDURE IN DETAIL: After informed consent was obtained and after detailed explanation of risks, benefits as well as alternative therapies, the patient elected to proceed with angiogram and angioplasty. The right femoral area was prepped and draped in normal sterile fashion. The right femoral artery was cannulated via modified Seldinger technique with placement of 6-Singaporean sheath. All catheters exchanged through this sheath. FINDINGS: Left ventriculogram was performed in standard 30-degree SWEET view, reveals good cardiac wall motion throughout all segments. Overall ejection fraction estimated at 55%. SELECTIVE CORONARY ANGIOGRAPHY: 1. Left main showed no significant angiographic disease. 2. Left anterior descending has previously placed stents. The stents are widely patent. However, there is a new 75% stenosis in the mid vessel. 3. Left circumflex has mild irregularities, but no flow-limiting stenosis. 4. The right coronary has moderate irregularities, but no flow-limiting stenosis. PTCA STENT OF THE LAD: The stent used was a 2.5 x 15 mm Percy. Result was 0% residual stenosis. OVERALL IMPRESSION: Successful percutaneous transluminal coronary angioplasty stent of the left anterior descending going from 75% initial stenosis to 0% residual. TRANSINT:[id number] Voice Confirmation ID: [id number] DOCUMENT ID: [id number] ELADIO ORTEGA MD CC: [id number] DICTATION DATE: 06/27/17 1337 LABORATORY TECHNICIAN: 06/27/17 1508 ADM IN [place] [id number] [place] [address]
--- NOTE | ~2017-06-26 | DS ---
PATIENT:JILLIAN TINSLEY :62 MEDICAL RECORD: [id number] DISCHARGE SUMMARY ADMISSION DATE: 06/27/17 DISCHARGE DATE: 06/27/17 DISCHARGE DIAGNOSES: 1. Unstable angina. 2. Coronary artery disease. 3. Percutaneous transluminal coronary angioplasty stent, left anterior descending this admission. 4. Hypertension. 5. Hyperlipidemia. HOSPITAL COURSE: Mr. Tinsley presents with anginal symptomatology in an unstable fashion, found to have significant disease of the LAD, underwent successful PTCA stent of the LAD, discharged home with no change in his medications as he is already on aspirin and Plavix. Follow up with [facility] in 1 month. TRANSINT:[id number] Voice Confirmation ID: [id number] DOCUMENT ID: [id number] ELADIO ORTEGA MD CC: [id number] DICTATION DATE: 06/27/17 1336 PANTRY STEWARD/STEWARDESS: 06/28/17 1003 DIS IN 06/27/17 [place] [address] [place] [id number]
[~2017-06-26 23:22] MED LIST changes: +MEDROL DOSE PACK4 MG PO
[2017-06-26 23:49] LABS: BASOPHILS 0.2 % (0-2); HEMOGLOBIN 17.3 g/dL (13.5-17.5); IMMATURE GRANULOCYTES 0.1 % (0-5); LYMPHOCYTES 35.6 % (15-50); MCH 32.9 pg (26.0-34.0); MCHC 34.6 g/dL (31.0-37.0); MCV 95.1 fL (80.0-100.0); MEAN PLATELET VOLUME 10.7 fL (7.4-10.4); MONOCYTES 13.5 % (2-11); NEUTROPHILS 45.6 % (40-80); PLATELET COUNT 174 10x3/uL (130-400); RBC 5.26 10x6/uL (4.20-6.10); RDW 12.4 % (11.5-14.5); WBC 8.6 10x3/uL (4.8-10.8)
[2017-06-27 00:15] LABS: ALBUMIN 3.5 g/dL (3.4-5.0); ALKALINE PHOSPHATASE 119 U/L (46-116); ALT (SGPT) 50 U/L (10-68); BILIRUBIN - TOTAL 0.58 mg/dL (0.2-1.3); CALC OSMOLALITY 289 mosm/kg (275-300); CALCIUM 9.3 mg/dL (8.5-10.1); CARBON DIOXIDE 29.8 mmol/L (21.0-32.0); CHLORIDE - SERUM 106 mmol/L (98-107); CREATININE - SERUM 1.2 mg/dL (0.6-1.3); GLUCOSE 108 mg/dL (74-106); POTASSIUM - SERUM 3.8 mmol/L (3.5-5.1); PROTEIN - SERUM 6.6 g/dL (6.4-8.2); SODIUM 144 mmol/L (136-145); UREA NITROGEN 19 mg/dL (7-18); eGFR NON AFRICAN AMERICAN 66 mL/min (90-120)
[2017-06-27 00:24] LABS: CHOL - HDL RATIO 3.7 ratio (2.3-4.9); CHOLESTEROL, TOTAL 171 mg/dL (0-200); CKMB 2.3 U/L (0.0-3.6); CREATINE KINASE 285 UL (21-232); HDL CHOLESTEROL 46 mg/dL (32-96); LDL CHOLESTEROL 76 mg/dL (0-100); LDL-HDL RATIO 1.7 ratio (1.5-3.5); TRIGLYCERIDE 245 mg/dL (30-200)
[2017-06-27 00:26] LABS: TROPONIN-I < 0.017 ng/mL (0.000-0.060)
[2017-06-27 04:56] LABS: CKMB 1.7 U/L (0.0-3.6); CREATINE KINASE 223 UL (21-232); TROPONIN-I < 0.017 ng/mL (0.000-0.060)
[2017-06-27 08:00] VITALS: BP 108/69
[2017-06-27 08:21] LABS: BASOPHILS 0.3 % (0-2); EOSINOPHILS 5.9 % (0-7); HEMATOCRIT 50.9 % (42.0-54.0); HEMOGLOBIN 17.3 g/dL (13.5-17.5); IMMATURE GRANULOCYTES 0.1 % (0-5); LYMPHOCYTES 40.8 % (15-50); MCH 32.7 pg (26.0-34.0); MCV 96.2 fL (80.0-100.0); MONOCYTES 11.7 % (2-11); NEUTROPHILS 41.2 % (40-80); PLATELET COUNT 171 10x3/uL (130-400); RBC 5.29 10x6/uL (4.20-6.10); RDW 12.4 % (11.5-14.5); WBC 7.8 10x3/uL (4.8-10.8)
[2017-06-27 08:22] LABS: ANION GAP 14.2 mmol/L (8-16); CALCIUM 9.2 mg/dL (8.5-10.1); CARBON DIOXIDE 26.8 mmol/L (21.0-32.0); CREATININE - SERUM 1.3 mg/dL (0.6-1.3)
[2017-06-27] MEDS ORDERED: NAPROXEN250 MG PO (10:01)
[2017-06-27] MEDS ORDERED: KLONOPIN0.5 MG PO (10:02)
[2017-06-27 10:43] LABS: CKMB 1.9 U/L (0.0-3.6); CREATINE KINASE 170 UL (21-232); TROPONIN-I < 0.017 ng/mL (0.000-0.060)
[2017-06-27 12:00] VITALS: BP 120/66
[2017-06-27 14:51] VITALS: BP 113/83
[2017-06-27 17:16] LABS: CKMB 1.6 U/L (0.0-3.6); CREATINE KINASE 137 UL (21-232); TROPONIN-I < 0.017 ng/mL (0.000-0.060)
== END 2017-06-27 19:28 | disposition home or self-care (01) ==
LOC: D.ER 23:22 → D.M2 06-27 04:32 → OBSVTIME 06-27 04:32 → D.M2 06-27 04:32
PROVIDERS: Family Medicine; Internal Medicine Cardiovascular Disease
DX: I25.110 Atherosclerotic heart disease of native coronary artery with unstable angina pectoris (principal); I10 Essential (primary) hypertension; E78.5 Hyperlipidemia, unspecified; Z87.891 Personal history of nicotine dependence

== ENCOUNTER 2017-07-02 22:16 | Observation (INO) | payer SELFPAY ==
[~2017-07-02] VITALS: Ht 172.7 cm; Wt 90.9 kg
--- NOTE | ~2017-07-02 | OP ---
PATIENT NAME: JILLIAN TINSLEY MEDICAL RECORD: [id number] :62 LOCATION:D.M2 D.2120 ADMISSION DATE:07/03/17 SURGEON: ELADIO ORTEGA MD DATE OF OPERATION: 07/04/2017 PROCEDURES: 1. PTCA stent LAD. 2. Intravascular ultrasound of the LAD. 3. Left heart catheterization. 4. Selective coronary angiography. 5. Left ventriculogram. INDICATION: Angina and coronary artery disease. PROCEDURE IN DETAIL: After informed consent was obtained and after a detailed explanation of the risks, benefits as well as alternative therapies, the patient elected to proceed with angiogram and angioplasty. The right femoral area was prepped and draped in normal sterile fashion. The right femoral artery was cannulated via modified Seldinger technique with placement of 6-Amharic sheath. All catheters exchanged through this sheath. FINDINGS: Left ventriculogram was performed in standard 30-degree SWEET view, reveals good cardiac wall motion throughout all segments. Overall ejection fraction estimated at 60%. SELECTIVE CORONARY ANGIOGRAPHY: 1. Left main showed no significant angiographic disease. 2. Left anterior descending has a 70% stenosis confirmed by intravascular ultrasound proximally followed by a 75% to 80% stenosis in the mid vessel. Previously placed stents are widely patent. 3. The left circumflex has moderate irregularities, but no flow-limiting stenosis. 4. Right coronary has moderate irregularities, but no flow-limiting stenosis throughout. PTCA STENT OF THE LAD: The stents used are 2.25 x 18 mm Percy in the mid distal vessel, 4.0 x 15 mm Integrity stent in the proximal vessel. Result was 0% residual stenosis. OVERALL IMPRESSION: Successful percutaneous transluminal coronary angioplasty stent of the left anterior descending going from 80% initial stenosis to 0% residual. TRANSINT:[id number] Voice Confirmation ID: [id number] DOCUMENT ID: [id number] ELADIO ORTEGA MD at 1800 CC: [id number] DICTATION DATE: 07/04/17 1516 BED WORKER: 07/04/17 1557 ADM IN [place] [id number]
--- NOTE | ~2017-07-02 | HEMODYNAMI ---
PATIENT:JILLIAN TINSLEY MEDICAL RECORD: [id number] : 62 LOCATION:[address] ADMISSION DATE: 07/03/17 Generatedon:07/04/201715:21 Patient name: JILLIAN TINSLEY Patient #: [id number] SSN: [id number] : 1960 Date of study: 07/04/2017 Page: Of Hemodynamic Procedure Report Patient Data Patient Demographics Procedure consent was obtained First Name: JILLIAN Gender: Male Last Name: LAUREANO : 1960 Patient #: [id number] Age: 57 year(s) Race: SSN: [id number] Additional ID: [id number] Contact details [address]: [address] [place] [address] State: [place] City: [place] Zip code: [address] Past Medical History Allergies: No known allergies Admission Admission Data Admission Date: 07/03/2017 Admission Time: 5:52 Room #: [facility]0 Procedure Procedure Types Cath Procedure Diagnostic Procedure [facility] w/Coronaries FFR/IVUS Intra-Coronary IVUS Initial PCI Procedure Coronary Stent Coronary Stent Initial Miscellaneous Procedures Moderate Sedation up to 15 minutes Procedure Description Procedure Date Procedure Date: 07/04/2017 Procedure Start Time: 14:57 Procedure End Time: 15:18 Procedure Staff Name Function Arben Erickson MD Performing Physician Katrina Nieto RT Scrub Sagrario Fam RT Monitor Danitza Brasher RN Nurse Procedure Data Cath Procedure Fluoroscopy Diagnostic fluoroscopy Total fluoroscopy Time: 4.5 time: 4.5 min min Diagnostic fluoroscopy Total fluoroscopy dose: dose: 1166 mGy 1166 mGy Contrast Material Contrast Material Type Amount (ml) Isovue 300 137 Entry Location Entry Primary Successful Side Size Upsize Upsize Entry Closure Succes sful Closure Location (Fr) 1 (Fr) 2 (Fr) Remarks Device Remarks Femoral Right 5 Fr 6 Fr Exoseal artery Short Estimated blood loss: 5 ml Diagnostic catheters Device Type Used For End Catheter Placement MULTIPACK Pigtail 5 Fr LV Angiography catheter MULTIPACK JL 4.0 5Fr Left Coronary catheter Angiography MULTIPACK 3DRC 5Fr Right Coronary catheter Angiography Procedure Complications No complications Procedure Medications Medication Administration Route Dosage Oxygen NC 2 l/min Lidocaine 2% added to field 20 Heparin Flush Bag added to field 2 bags (1000units/500ml NS) 0.9% NaCl I.V. 100 ml/hr Versed I.V. 1 mg Fentanyl I.V. 100 mcg Versed I.V. 1 mg Fentanyl I.V. 50 mcg Fentanyl I.V. 50 mcg Heparin Bolus I.V. 4000 units Nitroglycerin IC/IA I.C. 200 mcg Hemodynamics Rest Heart Rate: 69 (bpm) Snapshots Pre Cath Intra NCS Post Cath Vital Signs Time Heart Resp SPO2 etCO2 NIBP (mmHg) Rhythm Pain Sedation Rate (ipm) (%) (mmHg) Status Level (bpm) 14:46:46 68 19 94 0 136/72(97) NSR 0 (11) 10(A) , No pain 14:51:31 76 17 94 0 125/66(115) NSR 0 (11) 10(A) , No pain 14:56:11 72 16 95 36 131/80(104) NSR 0 (11) 10(A) , No pain 15:00:56 83 12 95 32.2 127/73(115) NSR 0 (11) 9(A) , No pain 15:05:39 82 16 93 38.2 136/74(101) NSR 0 (11) 9(A) , No pain 15:12:10 96 15 92 39.7 120/68(0) NSR 0 (11) 10(A) , No pain 15:17:05 93 18 93 40.4 118/72(92) NSR 0 (11) 10(A) , No pain Medications Time Medication Route Dose Verified Delivered Reason Notes Effectiveness by by 14:46:21 Oxygen NC 2 Arben Bosch used for l/min Georgina Brasher RN procedure 14:46:27 Lidocaine 2% added 20ml Arben Theodore for local to vial Georgina Erickson MD anesthetic field 14:46:33 Heparin Flush added 2 Arben Theodore used for Bag to bags Georgnia Erickson MD procedure (1000units/500ml field NS) 14:46:45 0.9% NaCl I.V. 100 Arben Buffie Per physician ml/hr Georgina Brasher RN 14:53:00 Fentanyl I.V. 100 Arben Bosch for sedation mcg Georgina Brasher RN 14:53:54 Versed I.V. 1 mg Arben Bosch for sedation Georgina Brasher RN 14:58:58 Versed I.V. 1 mg Arben Bosch for sedation Georgina Brasher RN 14:59:02 Fentanyl I.V. 50 Arben Bosch for sedation mcg Georgina Brasher RN 15:03:01 Fentanyl I.V. 50 Arben Bosch for sedation mcg Georgina Brasher RN 15:04:55 Heparin Bolus I.V. 4000 Arben Bosch for verifi ed units Georgina Brasher RN anticoagulation with dr erickson 15:09:20 Nitroglycerin I.C. 200 Arben Theodore for IC/IA mcg Georgina Erickson MD vasodilation Procedure Log Time Note 14:20:05 Katrina Counts RT(R) sent for patient. Start room use. 14:29:05 Informed consent obtained and on chart 14:29:31 Diagnostic Cath status Elective 14:29:33 Time tracking: Regular hours 14:29:37 Plan of Care:Hemodynamics will remain stable., Cardiac rhythm will remain stable., Comfort level will be maintained., Respiratory function will remain adequate., Patient/ family verbilizes understanding of procedure., Procedure tolerated without complication., Recovers from procedure without complications.. 14:29:42 H&P Date Dictated: 07/04/2017 Within 30 days and on chart.. 14:42:27 Patient received from Med II to CCL 1 Alert and oriented. Tansferred to table in Supine position. 14:42:28 Warm blankets applied, and lsoan hugger turned on for patient comfort. 14:42:29 Correct patient and procedure confirmed by team. 14:42:30 ECG and BP/O2 sat monitors applied to patient. 14:45:45 Vital chart was started 14:46:21 Oxygen 2 l/min NC was administered by Danitza Brasher RN; used for procedure; 14:46:27 Lidocaine 2% 20ml vial added to field was administered by Arben Erickson MD; for local anesthetic; 14:46:33 Heparin Flush Bag (1000units/500ml NS) 2 bags added to field was administered by Arben Erickson MD; used for procedure; 14:46:45 0.9% NaCl 100 ml/hr I.V. was administered by Danitza Brasher RN; Per physician; 14:50:50 Baseline sample Acquired. 14:50:54 Rhythm: sinus rhythm 14:50:56 Full Disclosure recording started 14:50:57 Pre-procedure instructions explained to patient. 14:50:57 Pre-op teaching completed and patient verbalized understanding. 14:50:59 Family in waiting room. 14:51:01 Patient NPO since Lunch. 14:51:05 Is the patient allergic to Iodine/contrast media? No. 14:51:07 Was the patient premedicated? No 14:51:10 Is patient on blood thinner?Yes 14:51:12 ACC The patient was administered the following blood thiners within the last 24 hours: ACCPlavix 14:51:15 Patient diabetic? No. 14:51:18 Previous problem with sedation/anesthesia? No ? 14:51:20 Snore? Yes 14:51:21 Sleep apnea? No 14:51:23 Deviated septum? No 14:51:23 Opens mouth fully? Yes 14:51:24 Sticks out tongue? Yes 14:51:27 Airway obstruction? No ? 14:51:30 Dentures? No ? 14:51:33 Pre procedure: right dorsailis pedis pulse 2+ Normal; easily identifiable; not easily obliterated 14:51:35 Pre procedure: left dorsailis pedis pulse 2+ Normal; easily identifiable; not easily obliterated 14:51:39 Patient pain scale 0/10 ?. 14:52:05 IV patent on arrival in left antecubital with 0.9% NaCl at [facility]. 14:52:08 Lab results completed and on chart. 14:52:12 Right groin area was prepped with chlora-prep and draped in sterile fashion 14:52:13 Alarms reviewed by R. N. 14:52:14 Sharps counted by scrub and verified by R.N. 14:52:15 Physician arrived 14:52:16 --------ALL STOP TIME OUT------ 14:52:16 Final Timeout: patient, procedure, and site verified with staff and physician. All members of the team are in agreement. 14:52:18 Right groin site verified by team. 14:52:21 Physical assessment completed. ASA score P 2 - A patient with mild systemic disease as per Arben Erickson MD. 14:52:25 Sedation plan: IV Moderate Sedation Medication:Versed, Fentanyl 14:52:37 Use device set Femoral Dx 14:52:39 ACIST Syringe (16890) opened to sterile field. 14:52:39 Bag Decanter (2002S) opened to sterile field. 14:52:40 Medline Cath Pack ([id number]) opened to sterile field. 14:52:40 SHEATH 5FR [place] (ZSE914) opened to sterile field. 14:52:41 DIAGNOSTIC WIRE .035 260cm J wire (996836) opened to sterile field. 14:52:42 ACIST Hand Control (69706) opened to sterile field. 14:52:42 ACIST Manifold (55280) opened to sterile field. 14:52:43 DIAGNOSTIC Multipack 5Fr catheter set (EO1917) opened to sterile field. 14:52:43 Tegaderm 4 x 4 (1626W) opened to sterile field. 14:53:00 Fentanyl 100 mcg I.V. was administered by Danitza Brasher RN; for sedation; 14:53:54 Versed 1 mg I.V. was administered by Danitza Brasher RN; for sedation; 14:56:53 Zero performed for pressure channel P1 14:57:29 Procedure started. 14:57:35 Local anesthetic to right femoral artery with Lidocaine 2% by Arben Erickson MD.INITIAL ACCESS ONLY 14:57:45 A 5 Fr sheath was inserted into the Right Femoral artery 14:58:58 Versed 1 mg I.V. was administered by Danitza Brasher RN; for sedation; 14:59:02 Fentanyl 50 mcg I.V. was administered by Danitza Brasher RN; for sedation; 14:59:04 A MULTIPACK Pigtail 5 Fr catheter was advanced over the wire and used for LV Angiography. 14:59:08 LV gram done using SWEET 14:59:11 Injector settings: Ml/sec: 5, Volume: 15, 14:59:18 EF : 50 % 14:59:21 Catheter removed. 14:59:32 A MULTIPACK JL 4.0 5Fr catheter was advanced over the wire and used for Left Coronary Angiography. 14:59:45 LCA angiography performed. 14:59:51 Injector settings: Ml/sec: 3, Volume: 6, 15:00:25 Catheter removed. 15:00:30 A MULTIPACK 3DRC 5Fr catheter was advanced over the wire and used for Right Coronary Angiography. 15:00:33 RCA angiography performed. 15:00:36 Injector settings: Ml/sec: 3, Volume: 6, 15:00:56 INFLATOR Merit BasixCompak (WZ9224) opened to sterile field. 15:00:57 SHEATH 6FR [place] (GSC072) opened to sterile field. 15:01:05 Benedict [place] Eagleye IVUS Catheter (67027Z) opened to sterile field. 15:01:28 GUIDE 6FR EBU 3.0 catheter ([id number]) opened to sterile field. 15:02:08 CHOICE PT Extra Support 182cm wire ([id number]) opened to sterile field. 15:02:19 Catheter removed. 15:02:33 Sheath upsized to a 6 Fr Short. 15:02:40 6 Fr ebu 3 guide catheter was inserted over the wire 15:02:45 choice pt wire advanced. 15:02:47 Wire advanced across lesion. 15:02:53 IVUS catheter advanced over wire. 15:03:01 Fentanyl 50 mcg I.V. was administered by Danitza Brasher RN; for sedation; 15:04:55 Heparin Bolus 4000 units I.V. was administered by Danitza Brasher RN; for anticoagulation; verified with dr erickson 15:05:54 IVUS pass to LAD lesion performed. 15:05:55 IVUS catheter removed over wire. 15:07:30 Inflation Number: 1 A INTEGRITY RX 4.0 x 15 stent ([id number]) was prepped and advanced across the Prox LAD. The stent was deployed at 13 DEMARIO for 0:10 (min:sec). 15:08:28 Stent catheter was removed intact over wire. 15:09:20 Nitroglycerin IC/IA 200 mcg I.C. was administered by Arben Erickson MD; for vasodilation; 15:12:42 Inflation Number: 1 A YESY RX 2.25 x 18 stent ([id number]) was prepped and advanced across the Dist LAD. The stent was deployed at 10 DEMARIO for 0:10 (min:sec). 15:13:34 Stent catheter was removed intact over wire. 15:13:34 Wire removed. 15:13:35 Guide catheter removed. 15:13:41 EXOSEAL 6Fr (EX600) opened to sterile field. 15:14:21 Sheath removed intact; hemostasis achieved with Exoseal to the Right Femoral artery. 15:14:32 Procedure ended.(Physican Out) 15:14:43 Fluoroscopy time 04.50 minutes. 15:14:47 Fluoroscopy dose: 1166 mGy 15:14:47 Flurop Dose total: 1166 15:15:08 Contrast amount:Isovue 300 137ml. 15:15:09 Sharps counted by scrub and verified by R.N. 15:15:10 Insertion/operative site no bleeding no hematoma. 15:15:13 Post-op/insertion site Right Femoral artery dressed using a 4 x 4 and Tegaderm. 15:15:16 Post right femoral artery:stable 15:15:17 Post Procedure Pulses reassessed and unchanged 15:15:20 Post procedure rhythm: unchanged. 15:15:23 Estimated blood loss: 5 ml 15:15:25 Post procedure instruction explained to patient.Patient verbalizes understanding. 15:15:25 Patient needs reinforcement of post procedure teaching. 15:18:35 Procedure type changed to Cath procedure, Diagnostic procedure, LHC, LHC w/Coronaries, FFR/IVUS, Intra-Coronary IVUS Initial, PCI procedure, Coronary Stent, Coronary Stent Initial, Miscellaneous Procedures, Moderate Sedation up to 15 minutes 15:18:41 Procedure and supply charges have been captured, reviewed, submitted and are correct. 15:18:46 Procedure Complication : No complications 15:18:48 Vital chart was stopped 15:18:48 See physician's report for complete and final results. 15:18:51 Report given to Med II. 15:18:54 Patient transfered to Med II with Stretcher. 15:18:57 Procedure ended. 15:18:57 Full Disclosure recording stopped 15:19:05 ACC-PCI Only Patient was given prescriptions, or instructed by Arben Erickson MD to start/continue the following medications upon discharge: Plavix 15:19:14 End room use (Document Last) Intervention Summary Intervention Notes Time ActionType Lesion and Equipment Used Action# Pressure Duration Attributes 15:07:30 Place stent Prox LAD INTEGRITY RX 1 13 00:10 4.0 x 15 stent ([id number]) 15:12:42 Place stent Dist LAD YESY RX 2.25 x 1 10 00:10 18 stent ([id number]) Device Usage Item Name Manufacture Quantity Catalog Number Hospital Part Current M inimal Lot# / Charge Number Stock Stock Serial# Code ACIST Syringe Acist 1 56877 906732 729764 688590 2 0 (24086) Medical Systems Inc Bag Decanter Microtek 1 2001S 878489 90384 621493 5 () Medical Inc. Medline Cath Cardinal 1 [id number] 743598 40637 499411 5 PhyFlex Networks ([id number]) SHEATH 5FR Terumo 1 IJE938 096171 397781 576132 4 0 [place] (IWU526) DIAGNOSTIC St Luis 1 660061 215041 823006 973109 3 0 WIRE .035 260cm J wire (133723) ACIST Hand Acist 1 81297 842215 654424 418974 5 Control Medical (52927) Systems Inc ACIST Manifold Acist 1 62215 069494 552556 242902 5 (08454) Medical Systems Inc DIAGNOSTIC Cardinal 1 FG0778 118671 27025 782529 3 0 Multipack 5Fr Health catheter set (XO3828) Tegaderm 4 x 4 3M 1 1626W 103110 016162 519057 5 (1626W) MULTIPACK Cardinal 1 778573 5 Pigtail 5 Fr Health catheter MULTIPACK JL Cardinal 1 419025 5 4.0 5Fr Health catheter MULTIPACK 3DRC Cardinal 1 324124 5 5Fr catheter Health INFLATOR Merit Merit 1 PP1363 604965 901578 186807 1 5 [employer] Technologies (NL6000) SHEATH 6FR Terumo 1 NHU412 132772 924764 596514 4 0 [place] (EGL569) Benedict Benedict 1 33403V 847675 438667 299266 8 [place] Eag[place] IVUS Catheter (98048Z) GUIDE 6FR EBU Medtronic 1 PW0SEI18 817201 04709 396272 0 3.0 catheter (BY4KPH67) CHOICE PT Rockwell 1 [id number] 056870 455438 844681 5 Extra Support Scientific 182cm wire ([id number]) INTEGRITY RX Medtronic 1 [id number] 692123 841405 900606 5 [id number] 4.0 x 15 stent ([id number]) YESY RX 2.25 x Medtronic 1 [id number] 798251 0584558 493526 5 [id number] 18 stent ([id number]) EXOSEAL 6Fr Cardinal 1 EX600 103047 595406 179336 1 0 (EX600) Health Signature Audit [place] Stage Time Signature Unsigned Intra-Procedure 07/04/2017 Sagrario Fam 3:21:28 PM RT(R) Signatures Monitor : Sagrario Fam RT Signature : Date : Time : [address] [address]
[~2017-07-02 22:16] MED LIST changes: +KLONOPIN0.5 MG PO; +NAPROXEN250 MG PO
[2017-07-02 23:06] LABS: BASOPHILS 0.4 % (0-2); EOSINOPHILS 2.7 % (0-7); HEMATOCRIT 51.6 % (42.0-54.0); HEMOGLOBIN 17.9 g/dL (13.5-17.5); IMMATURE GRANULOCYTES 0.2 % (0-5); LYMPHOCYTES 32.7 % (15-50); MCH 32.8 pg (26.0-34.0); MCHC 34.7 g/dL (31.0-37.0); MCV 94.7 fL (80.0-100.0); MEAN PLATELET VOLUME 10.6 fL (7.4-10.4); PLATELET COUNT 204 10x3/uL (130-400); RBC 5.45 10x6/uL (4.20-6.10); RDW 12.3 % (11.5-14.5); WBC 12.1 10x3/uL (4.8-10.8)
[2017-07-02 23:27] LABS: ALBUMIN 3.8 g/dL (3.4-5.0); ALKALINE PHOSPHATASE 128 U/L (46-116); ALT (SGPT) 60 U/L (10-68); BILIRUBIN - TOTAL 0.46 mg/dL (0.2-1.3); CALC OSMOLALITY 290 mosm/kg (275-300); CALCIUM 9.4 mg/dL (8.5-10.1); CARBON DIOXIDE 30.9 mmol/L (21.0-32.0); CHLORIDE - SERUM 106 mmol/L (98-107); CREATININE - SERUM 1.3 mg/dL (0.6-1.3); GLUCOSE 133 mg/dL (74-106); POTASSIUM - SERUM 3.8 mmol/L (3.5-5.1); PROTEIN - SERUM 6.8 g/dL (6.4-8.2); SODIUM 144 mmol/L (136-145); UREA NITROGEN 17 mg/dL (7-18); eGFR NON AFRICAN AMERICAN 61 mL/min (90-120)
[2017-07-02 23:36] LABS: CHOLESTEROL, TOTAL 185 mg/dL (0-200); CKMB 2.7 U/L (0.0-3.6); CREATINE KINASE 253 UL (21-232); HDL CHOLESTEROL 46 mg/dL (32-96); LDL CHOLESTEROL 88 mg/dL (0-100); LDL-HDL RATIO 1.9 ratio (1.5-3.5); TRIGLYCERIDE 255 mg/dL (30-200)
[2017-07-02 23:41] LABS: TROPONIN-I < 0.017 ng/mL (0.000-0.060)
[2017-07-03 06:10] LABS: CKMB 2.1 U/L (0.0-3.6); CREATINE KINASE 195 UL (21-232)
[2017-07-03 06:13] LABS: TROPONIN-I < 0.017 ng/mL (0.000-0.060)
[2017-07-03 11:54] LABS: CKMB 1.8 U/L (0.0-3.6); CREATINE KINASE 168 UL (21-232); TROPONIN-I < 0.017 ng/mL (0.000-0.060)
[2017-07-03 15:57] VITALS: BP 110/68; Ht 172.7 cm; Wt 90.9 kg
[2017-07-03 17:51] LABS: CKMB 3.2 U/L (0.0-3.6); CREATINE KINASE 178 UL (21-232); TROPONIN-I < 0.017 ng/mL (0.000-0.060)
[2017-07-03 20:00] VITALS: BP 111/64
[2017-07-04] VITALS: BP 114/56
[2017-07-04 04:00] VITALS: BP 116/48
[2017-07-04 09:10] VITALS: BP 114/59
[2017-07-04 12:55] VITALS: BP 142/88
== END 2017-07-04 19:49 | disposition home or self-care (01) ==
LOC: D.ER 22:16 → D.SDCHOLD 07-03 05:52 → D.M2 07-03 05:52 → D.SDCHOLD 07-03 05:52 → OBSVTIME 07-03 05:52 → D.M2 07-03 14:44
PROVIDERS: Family Medicine
DX: I25.119 Atherosclerotic heart disease of native coronary artery with unspecified angina pectoris (principal); Z95.5 Presence of coronary angioplasty implant and graft

== ENCOUNTER 2017-10-20 20:19 | Emergency (ER) | payer SELFPAY ==
[2017-07-03 15:57] VITALS: BMI 30.4
== END 2017-10-21 01:20 | disposition home or self-care (01) ==
LOC: D.ER 20:19
DX: S70.01XA Contusion of right hip, initial encounter (principal); S10.93XA Contusion of unspecified part of neck, initial encounter; S30.0XXA Contusion of lower back and pelvis, initial encounter; W10.9XXA Fall (on) (from) unspecified stairs and steps, initial encounter; Y93.89 Activity, other specified; Y92.019 Unspecified place in single-family (private) house as the place of occurrence of the external cause; S16.1XXA Strain of muscle, fascia and tendon at neck level, initial encounter; S39.012A Strain of muscle, fascia and tendon of lower back, initial encounter

== ENCOUNTER 2018-05-07 09:50 | Observation (INO) | payer OTHER ==
[~2018-05-07] VITALS: Ht 172.7 cm; Wt 90.9 kg
--- NOTE | ~2018-05-07 | MORECARE ---
CASE MANAGEMENT DISCHARGE SUMMARY PATIENT: JILLIAN TINSLEY UNIT: [id number] ADM DATE: 05/07/18 AGE: 57 : [birth year] SEX: M ROOM/BED: D.E06 AUTHOR: VENITA VO PHYSICIAN: REFERRING PHYSICIAN: ELADIO ORTEGA MD DATE OF SERVICE: 05/07/18 Discharge Plan Patient Name: JILLIAN TINSLEY Facility[facility]:[place] : 1960 Planned Disposition: Anticipated Discharge Date: Discharge Date: Expected LOS: Initial Reviewer: [email or web address] Initial Review Date: 05/07/2018 Generated: 05/07/18 12:51 pm DCP- Discharge Planning Updated by [email or web address]: Chasity Trevizo on 05/07/18 10:[address] Patient Name: JILLIAN TINSLEY Admission Status: ER Accout number: [id number] Admission Date: 05-07-2018 : 1960 Admission Diagnosis: Attending: NEIL ORTEGA Current LOS: 1 Anticipated DC Date: Planned Disposition: Primary Insurance: [employer] Discharge Planning Comments: MADAN AT THE [facility] CONTACTED AND SHE SAID SHE WOULD GET HIM ON THEIR LIST. HER NUMBER IS [phone]. Blunger: Chasity Trevizo Patient Name: JILLIAN TINSLEY Page [phone] at 1151 All edits/amendments must be made on the electronic document DICTATION DATE: 05/07/18 1151 INCLUSION SPECIAL EDUCATOR: GREGG 05/07/18 1151 RPT#: [id number] DC DATE: STATUS: ADM IN [facility] [address] [place] [address] END OF REPORT
--- NOTE | ~2018-05-07 | OP ---
PATIENT NAME: JILLIAN TINSLEY MEDICAL RECORD: [id number] :62 [facility] ADMISSION DATE:05/07/18 SURGEON: ELADIO ORTEGA MD DATE OF OPERATION: 05/08/2018 PROCEDURES: 1. Laser atherectomy of LAD. 2. PTCA and stent of LAD. 3. Selective coronary angiography. INDICATIONS: Angina and coronary artery disease. PROCEDURE PERFORMED: After informed consent was obtained and after detailed explanation of risks, benefits as well as alternative therapies, the patient elected to proceed with angiogram and angioplasty. The left femoral area was prepped and draped in normal sterile fashion. Left femoral artery was cannulated via modified Seldinger technique with placement of 6-Georgian sheath. All catheters exchanged through this sheath. FINDINGS: The left anterior descending has previously placed stents. There is 90+ percent in-stent restenosis in the proximal aspect. LASER ATHERECTOMY AND PTCA AND STENT OF THE LAD: The laser catheter was used. Multiple passes were made at 80/40. Stenting was undertaken with a 3.5 x 12-mm Percy stent. Result was 0% residual stenosis. OVERALL IMPRESSION: Successful PTCA and stent and laser atherectomy of the LAD going from 90% initial stenosis to 0% residual. TRANSINT:[id number] Voice Confirmation ID: [id number] DOCUMENT ID: [id number] ELADIO ORTEGA MD at 0941 CC: [id number] DICTATION DATE: 05/08/18 0824 DERMATOLOGY PHYSICIAN: 05/08/18 0928 ADM IN [place] [address] [place] [address]
--- NOTE | ~2018-05-07 | HEMODYNAMI ---
PATIENT:JILLIAN TINSLEY MEDICAL RECORD: [id number] : 62 [facility] ADMISSION DATE: 05/07/18 Generatedon:05/08/20188:26 Patient name: JILLIAN TINSLEY Patient #: [id number] SSN: [id number] : 1960 Date of study: 05/08/2018 Page: Of Hemodynamic Procedure Report Patient Data Patient Demographics Procedure consent was obtained First Name: JILLIAN Gender: Male Last Name: LAUREANO : 1960 Patient #: [id number] Age: 57 year(s) Race: SSN: [id number] Additional ID: [id number] Contact details Address: [address] [place] [address] State: [place] City: [place] Zip code: [address] Past Medical History Allergies Allergen Reaction Date Comments Reported Other allergy 05/08/2018 Admission Admission Data Admission Date: 05/07/2018 Admission Time: 10:11 Room #: D.2115 Weight (lbs.): 207.24 Weight (kg.): 94 Lab Results Lab Result Date: 05/07/2018 Lab Result Time: 0:00 Biochemistry Name Units Result Min Max BUN mg/dl 12 --(-*--)-- 7 18 Creatinine mg/dl 1.3 --(---*)-- 0.6 1.3 CBC Name Units Result Min Max Hemoglobin g/dl 19 --(----)-* 13.5 17.5 Procedure Procedure Types Cath Procedure PCI Procedure Coronary Stent Coronary Stent Initial Coronary Atherectomy Atherectomy w/PTCA Coronary Initial Procedure Description Procedure Date Procedure Date: 05/08/2018 Procedure Start Time: 8:08 Procedure End Time: 8:25 Procedure Staff Name Function Arben Erickson MD Performing Physician Alysha Wan RT Monitor Micah Khan RT Scrub Neena Braxton RN Nurse Mayo Boyer RT Application Processor Procedure Data Cath Procedure Fluoroscopy Diagnostic fluoroscopy Total fluoroscopy Time: 4 time: 4 min min Diagnostic fluoroscopy Total fluoroscopy dose: 405 dose: 405 mGy mGy Contrast Material Contrast Material Type Amount (ml) Isovue 300 52 Entry Location Entry Primary Successful Side Size Upsize Upsize Entry Closure Succes sful Closure Location (Fr) 1 (Fr) 2 (Fr) Remarks Device Remarks Femoral Left 6 Fr Exoseal artery Short Estimated blood loss: 10 ml Procedure Complications No complications Procedure Medications Medication Administration Route Dosage 0.9% NaCl I.V. 100 ml/hr Oxygen etCO2 Nasal cannula 2 l/min Lidocaine 2% added to field 20 Heparin Flush Bag added to field 2 bags (1000units/500ml NS) Versed I.V. 2 mg Fentanyl I.V. 100 mcg Heparin Bolus I.V. 4000 units Versed I.V. 2 mg Fentanyl I.V. 25 mcg Hemodynamics Rest HGB: 19 (g/dl) Heart Rate: 76 (bpm) Snapshots Pre Cath Intra NCS Post Cath Vital Signs Time Heart Resp SPO2 etCO2 NIBP (mmHg) Rhythm Pain Sedation Rate (ipm) (%) (mmHg) Status Level (bpm) 8:01:47 61 13 97 33 137/90(109) NSR 0 (11) 10(A) , No pain 8:06:11 63 14 98 38.7 135/80(99) NSR 0 (11) 10(A) , No pain 8:10:37 76 14 98 20 150/84(129) NSR 0 (11) 10(A) , No pain 8:15:01 77 16 96 41 142/112(131) NSR 0 (11) 9(A) , No pain 8:19:26 91 15 98 49 155/105(130) NSR 0 (11) 10(A) , No pain 8:23:48 97 19 93 54.3 143/106(118) NSR 0 (11) 10(A) , No pain Medications Time Medication Route Dose Verified Delivered Reason Notes Effectiveness by by 8:07:01 0.9% NaCl I.V. 100 Arben Neena used for ml/hr Georgina Braxton commercial lending assistant 8:07:12 Oxygen etCO2 2 Arben Neena used for Nasal l/min Georgina Braxton procedure cannula RN 8:07:17 Lidocaine 2% added 20ml Arben Neena for local to vial Georgina Braxton anesthetic field RN 8:07:22 Heparin Flush added 2 Arben Neena used for Bag to bags Georgina Braxton procedure (1000units/500ml field RN NS) 8:08:36 Versed I.V. 2 mg Arben Neena for sedation Georgina Braxton RN 8:08:47 Fentanyl I.V. 100 Arben Neena for sedation mcg Georgina Braxton RN 8:10:03 Heparin Bolus I.V. 4000 Arben Neena for verifi ed units Georgina Braxton anticoagulation with Dr. YAKOV Erickson 8:12:53 Versed I.V. 2 mg Arben Neena for sedation Georgina Braxton RN 8:12:59 Fentanyl I.V. 25 Arben Neena for sedation mcg Georgina Braxton RN Procedure Log Time Note 7:24:35 Patient Weight : 207.24 lbs 7:29:59 Signed procedure consent form obtained from patient. 7:30:00 Time tracking: Regular hours (M-F 7:00 - 5:00) 7:30:06 Plan of Care:Hemodynamics will remain stable., Cardiac rhythm will remain stable., Comfort level will be maintained., Respiratory function will remain adequate., Patient/ family verbilizes understanding of procedure., Procedure tolerated without complication., Recovers from procedure without complications.. 7:30:09 Mayo MAGANA(R) sent for patient. Start room use. 7:43:31 Patient received from Pre/Post Procedure Room to CCL 1 Alert and oriented. Tansferred to table in Supine position. 7:43:32 Warm blankets applied, and sloan hugger turned on for patient comfort. 7:43:33 Correct patient and procedure confirmed by team. 7:43:34 ECG and BP/O2 sat monitors applied to patient. 7:43:35 Pre-procedure instructions explained to patient. 7:43:36 Pre-op teaching completed and patient verbalized understanding. 7:46:24 Family in patients room. 7:46:26 Patient NPO since Midnight. 7:46:35 Patient allergic to Other allergy 7:46:39 Is the patient allergic to Iodine/contrast media? No. 7:46:41 Is patient on blood thinner?Yes 7:46:44 ACC The patient was administered the following blood thiners within the last 24 hours: ACCPlavix 8:00:30 Vital chart was started 8:05:32 Baseline sample Acquired. 8:05:35 Rhythm: sinus rhythm 8:05:36 Full Disclosure recording started 8:06:11 Patient diabetic? No. 8:06:35 Previous problem with sedation/anesthesia? No ? 8:06:40 Snore? Yes 8:06:41 Sleep apnea? Yes 8:06:42 Deviated septum? No 8:06:42 Opens mouth fully? Yes 8:06:43 Sticks out tongue? Yes 8:06:45 Airway obstruction? No ? 8:06:47 Dentures? No ? 8:06:51 Pre procedure: left dorsailis pedis pulse 2+ Normal; easily identifiable; not easily obliterated 8:06:53 Patient pain scale 0/10 ?. 8:07:01 0.9% NaCl 100 ml/hr I.V. was administered by Neena Braxton RN; used for procedure; 8:07:08 IV patent on arrival in right antecubital with 0.9% NaCl at KVO. 8:07:11 IV right antecubital D/C'd due to infiltration. 8:07:12 Oxygen 2 l/min etCO2 Nasal cannula was administered by Neena Braxton RN; used for procedure; 8:07:17 Lidocaine 2% 20ml vial added to field was administered by Neena Braxton RN; for local anesthetic; 8:07:20 IV started by Neena Braxton RN inleft hand with a 22 gauge IV catheter with 0.9% NaCl at KVO. 8:07:22 Heparin Flush Bag (1000units/500ml NS) 2 bags added to field was administered by Neena Braxton RN; used for procedure; 8:07:27 IV CATHETER 22g opened to sterile field. 8:07:31 Lab results completed and on chart. 8:07:33 Left groin area was prepped with chlora-prep and draped in sterile fashion 8:07:34 Alarms reviewed by R. N. 8:07:34 Sharps counted by scrub and verified by R.N. 8:07:37 ACIST Syringe (63129) opened to sterile field. 8:07:38 Bag Decanter (2002S) opened to sterile field. 8:07:38 Medline Cath Pack ([id number]) opened to sterile field. 8:07:39 DIAGNOSTIC WIRE .035 260cm J wire (695730) opened to sterile field. 8:07:40 ACIST Hand Control (16967) opened to sterile field. 8:07:40 ACIST Manifold (71517) opened to sterile field. 8:07:41 Tegaderm 4 x 4 (1626W) opened to sterile field. 8:07:50 SHEATH 6FR [place] (CTY969) opened to sterile field. 8:07:59 CHOICE PT Extra Support 182cm wire ([id number]) opened to sterile field. 8:08:00 INFLATOR Merit BasixCompak (KK0106) opened to sterile field. 8:08:12 GUIDE 6FR XBLAD 3.5 catheter ([id number]) opened to sterile field. 8:08:18 Physician arrived 8:08:18 --------ALL STOP TIME OUT------ 8:08:19 Final Timeout: patient, procedure, and site verified with staff and physician. All members of the team are in agreement. 8:08:20 Left groin site verified by team. 8:08:23 Physical assessment completed. ASA score P 2 - A patient with mild systemic disease as per Arben Erickson MD. 8:08:27 Sedation plan: IV Moderate Sedation Medication:Versed, Fentanyl 8:08:30 Procedure started. 8:08:33 Local anesthetic to left femerol artery with Lidocaine 2% by Arben Erickson MD.INITIAL ACCESS ONLY 8:08:36 Versed 2 mg I.V. was administered by Neena Braxton RN; for sedation; 8:08:42 A 6 Fr Short sheath was inserted into the Left Femoral artery 8:08:47 Fentanyl 100 mcg I.V. was administered by Neena Braxton RN; for sedation; 8:09:20 LASER ELCA 0.9 Rx atherectomy catheter (347647) opened to sterile field. 8:09:29 6 Fr xblad 3.5 guide catheter was inserted over the wire 8:10:03 Heparin Bolus 4000 units I.V. was administered by Neena Braxton RN; for anticoagulation; verified with Dr. Erickson 8:10:19 choice pt es wire advanced. 8:10:30 Wire advanced across lesion. 8:12:31 Laser catheter advanced over wire. 8:12:53 Versed 2 mg I.V. was administered by Neena Braxton RN; for sedation; 8:12:59 Fentanyl 25 mcg I.V. was administered by Neena Braxton RN; for sedation; 8:13:28 Laser pass to pLAD with Fluence of 80 and Rate of 40. 8:15:06 Laser catheter removed. 8:17:02 Place stent Inflation Number: 1 A YESY RX 3.5 x 12 stent ([id number]) was prepped and advanced across the Prox LAD. The stent was deployed at 15 DEMARIO for 0:10 (min:sec). 8:17:42 Inflation number: 2 The stent balloon was then re-inflated across the Prox LAD to 17 DEMARIO for 0:10 (min:sec). 8:17:57 Inflation number: 3 The stent balloon was then re-inflated across the Prox LAD to 21 DEMARIO for 0:10 (min:sec). 8:18:05 Stent catheter was removed intact over wire. 8:18:08 Wire removed. 8:18:08 Guide catheter removed. 8:18:20 EXOSEAL 6Fr (EX600) opened to sterile field. 8:18:28 Sheath removed intact; hemostasis achieved with Exoseal to the Left Femoral artery. 8:18:29 Procedure ended.(Physican Out) 8:21:17 Fluoroscopy time 04.00 minutes. 8:21:20 Flurop Dose total: 405 8:21:20 Fluoroscopy dose: 405 mGy 8:21:26 Contrast amount:Isovue 300 52ml. 8:21:27 Sharps counted by scrub and verified by R.N. 8:22:00 Insertion/operative site no bleeding no hematoma. 8:22:02 Post-op/insertion site Left Femoral artery dressed using a 4 x 4 and Tegaderm. 8:23:31 Post left femerol artery:stable, soft, clean and dry 8:23:32 Post Procedure Pulses reassessed and unchanged 8:23:34 Post-procedure physical assessment completed. ASA score P 2 - A patient with mild systemic disease as per Arben Erickson MD. 8:23:36 Post procedure rhythm: unchanged. 8:23:38 Estimated blood loss: 10 ml 8:23:39 Post procedure instruction explained to patient.Patient verbalizes understanding. 8:23:40 Patient needs reinforcement of post procedure teaching. 8:24:13 Procedure type changed to Cath procedure, PCI procedure, Coronary Stent, Coronary Stent Initial, Coronary Atherectomy, Atherectomy w/PTCA Coronary Initial 8:24:40 Procedure and supply charges have been captured, reviewed, submitted and are correct. 8:24:48 Procedure Complication : No complications 8:24:50 Vital chart was stopped 8:24:51 See physician's report for complete and final results. 8:24:53 Report given to Pre/Post Procedure Room. 8:24:56 Patient transfered to Pre/Post Procedure Room with Stretcher. 8:25:04 Procedure ended. 8:25:04 Full Disclosure recording stopped 8:25:07 End room use (Document Last) Intervention Summary Intervention Notes Time ActionType Lesion and Equipment Used Action# Pressure Duration Attributes 8:17:02 Place stent Prox LAD YESY RX 3.5 x 1 15 00:10 12 stent ([id number]) 8:17:42 Reinflate Prox LAD YESY RX 3.5 x 2 17 00:10 stent 12 stent balloon ([id number]) 8:17:57 Reinflate Prox LAD YESY RX 3.5 x 3 21 00:10 stent 12 stent balloon ([id number]) Device Usage Item Name Manufacture Quantity Catalog Number Hospital Part Current M inimal Lot# / Charge Number Stock Stock Serial# Code IV CATHETER B. Nichole 1 [id number] [id number] 588498 747076 5 22g ACIST Syringe Acist 1 02077 216686 286289 304174 2 0 (05043) Medical Systems Inc Bag Decanter Microtek 1 2001S 266215 87537 174897 5 (2001S) Medical Inc. Medline Cath Medline 1 [id number] 591146 34281 068598 5 Pack ([id number]) DIAGNOSTIC St Luis 1 528108 364211 089118 197440 3 0 WIRE .035 260cm J wire (339379) ACIST Hand Acist 1 41074 015778 534313 806926 5 Control Medical (53084) Systems Inc ACIST Manifold Acist 1 19240 492663 729707 337707 5 (90037) Medical Systems Inc Tegaderm 4 x 4 3M 1 1626W 095846 983643 095042 5 (1626W) SHEATH 6FR Terumo 1 LZA719 269596 482853 955925 4 0 [place] (WCK975) CHOICE PT [place] 1 [id number] 114538 720984 908745 5 Extra Support Scientific 182cm wire ([id number]) INFLATOR Merit Merit 1 AK5501 662961 413020 230786 1 5 [facility] (XR2551) GUIDE 6FR Cardinal 1 [id number] 838336 812177 449188 1 0 XBLAD 3.5 Health catheter ([id number]) LASER ELCA 0.9 Velasquez 1 110-004 973229 611046 074658 5 Rx atherectomy Healthcare catheter (932954) (547748) YESY RX 3.5 x Medtronic 1 [id number] 712906 5563997 218311 5 [id number] 12 stent ([id number]) EXOSEAL 6Fr Cardinal 1 EX600 989744 688951 186980 1 0 (EX600) Health Signature Audit [place] Stage Time Signature Unsigned Intra-Procedure 05/08/2018 Micah Khan 8:26:50 AM RT(R) Signatures Monitor : Alysha Wan Signature : RT Date : Time : [facility] [address] [place] [address]
--- NOTE | ~2018-05-07 | OP ---
PATIENT NAME: JILLIAN TINSLEY MEDICAL RECORD: [id number] :62 [facility]ATION:[facility] ADMISSION DATE:05/07/18 SURGEON: ELADIO ORTEGA MD DATE OF OPERATION: 05/07/2018 PROCEDURES: 1. PTCA and stent of RCA. 2. Intravascular ultrasound. 3. Left heart catheterization. 4. Selective coronary angiography. 5. Left ventriculogram. INDICATION: Angina and coronary artery disease. PROCEDURE PERFORMED: After informed consent was obtained and after detailed explanation of risks, benefits as well as alternative therapies, the patient elected to proceed with angiogram and angioplasty. The right radial area was prepped and draped in normal sterile fashion. Right radial artery was cannulated via modified Seldinger technique with placement of 6-Japanese sheath. All catheters exchanged through this sheath. FINDINGS: The left ventriculogram was performed in standard 30-degree SWEET view, reveals good cardiac wall motion throughout all segments. Overall ejection fraction estimated 60%. SELECTIVE CORONARY ANGIOGRAPHY: 1. Left main is with no significant angiographic disease. 2. Left anterior descending has previously placed stents. There is 80% in-stent restenosis mid vessel. 3. Left circumflex has mild irregularities, but no flow-limiting stenosis. 4. Right coronary has 80% stenosis in mid vessel confirmed by intravascular ultrasound. PTCA AND STENT OF THE RCA: The stent used was a 2.5 x 15-mm Balsam. Result was 0% residual stenosis. OVERALL IMPRESSION: Successful PTCA and stent of the RCA going from 80% initial stenosis to 0% residual. Plan for PTCA and stent of the LAD in the near future. TRANSINT:[id number] Voice Confirmation ID: [id number] DOCUMENT ID: [id number] ELADIO ORTEGA MD at 0941 CC: [id number] DICTATION DATE: 05/07/18 1244 SOLID WASTE COLLECTOR: 05/07/18 1431 ADM IN [place] [address] [place] [address]
--- NOTE | ~2018-05-07 | HEMODYNAMI ---
PATIENT:JILLIAN TINSLEY MEDICAL RECORD: [id number] : 62 LOCATION:[facility] ADMISSION DATE: 05/07/18 Generatedon:05/07/201812:47 Patient name: JILLIAN TINSLEY Patient #: [id number] SSN: [id number] : 1960 Date of study: 05/07/2018 Page: Of Hemodynamic Procedure Report Patient Data Patient Demographics Procedure consent was obtained First Name: JILLIAN Gender: Male Last Name: LAUREANO : 1960 Patient #: [id number] Age: 57 year(s) Race: SSN: [id number] Additional ID: [id number] Contact details [address]: [address] [place] [address] State: [place] City: [place] Zip code: [address] Past Medical History Allergies: No known allergies Admission Admission Data Admission Date: 05/07/2018 Admission Time: 10:11 Room #: [facility] Weight (lbs.): 207.24 Weight (kg.): 94 Lab Results Lab Result Date: 05/07/2018 Lab Result Time: 0:00 Biochemistry Name Units Result Min Max BUN mg/dl 12 --(-*--)-- 7 18 Creatinine mg/dl 1.3 --(---*)-- 0.6 1.3 CBC Name Units Result Min Max Hemoglobin g/dl 19 --(----)-* 13.5 17.5 Procedure Procedure Types Cath Procedure Diagnostic Procedure LHC LH w/Coronaries FFR/IVUS Intra-Coronary IVUS Initial Sedation Charges Moderate Sedation up to 15 minutes PCI Procedure Coronary Stent Coronary Stent Initial Procedure Description Procedure Date Procedure Date: 05/07/2018 Procedure Start Time: 12:27 Procedure End Time: 12:46 Procedure Staff Name Function Arben Erickson MD Performing Physician Mayo Boyer RT Bottle Hop Alysha Wan RT Monitor Sagrario Fam RT Scrub Faustino Lorigan RN Nurse Procedure Data Cath Procedure Fluoroscopy Diagnostic fluoroscopy Total fluoroscopy Time: 3.6 time: 3.6 min min Diagnostic fluoroscopy Total fluoroscopy dose: 666 dose: 666 mGy mGy Contrast Material Contrast Material Type Amount (ml) Isovue 300 93 Entry Location Entry Primary Successful Side Size Upsize Upsize Entry Closure Succes sful Closure Location (Fr) 1 (Fr) 2 (Fr) Remarks Device Remarks Femoral Right 5 Fr 6 Fr Exoseal artery Short Estimated blood loss: 10 ml Diagnostic catheters Device Type Used For End Catheter Placement MULTIPACK Pigtail 5 Fr Procedure catheter MULTIPACK JL 4.0 5Fr Procedure catheter MULTIPACK 3DRC 5Fr Procedure catheter Procedure Complications No complications Procedure Medications Medication Administration Route Dosage 0.9% NaCl I.V. 100 ml/hr Oxygen etCO2 Nasal cannula 2 l/min Heparin Flush Bag added to field 2 bags (1000units/500ml NS) Lidocaine 2% added to field 20 Versed I.V. 2 mg Fentanyl I.V. 100 mcg Heparin Bolus I.V. 4000 units Hemodynamics Rest HGB: 19 (g/dl) Heart Rate: 71 (bpm) Snapshots Pre Cath Intra NCS Post Cath Vital Signs Time Heart Resp SPO2 etCO2 NIBP (mmHg) Rhythm Pain Sedation Rate (ipm) (%) (mmHg) Status Level (bpm) 12:11:05 65 21 96 38 125/92(102) NSR 0 (11) 10(A) , No pain 12:15:13 65 11 96 43.9 131/85(107) NSR 0 (11) 10(A) , No pain 12:19:25 63 11 96 41.7 133/83(105) NSR 0 (11) 10(A) , No pain 12:23:39 72 10 91 8.1 134/80(99) NSR 0 (11) 10(A) , No pain 12:27:49 65 12 93 32.7 125/89(101) NSR 0 (11) 9(A) , No pain 12:31:55 77 11 93 42.5 132/92(108) NSR 0 (11) 9(A) , No pain 12:36:54 76 9 88 38 Measuring NSR 0 (11) 10(A) , No pain 12:37:10 80 9 95 23.8 129/75(106) NSR 0 (11) 10(A) , No pain 12:41:24 74 10 92 36.5 132/72(98) NSR 0 (11) 10(A) , No pain 12:45:40 70 11 11.9 119/73(95) NSR 0 (11) 10(A) , No pain Medications Time Medication Route Dose Verified Delivered Reason Notes Effectiveness by by 12:11:37 0.9% NaCl I.V. 100 Faustino Faustino Per physician ml/hr Guero Jack RN RN 12:11:50 Oxygen etCO2 2 Faustino Faustino Per physician Nasal l/min Guero Jack cannula RN RN 12:12:01 Heparin Flush added 2 Faustino Faustino used for Bag to bags Guero Jack procedure (1000units/500ml field RN RN NS) 12:12:13 Lidocaine 2% added 20ml Fausitno Faustino for local to vial Guero Jack anesthetic RN RN 12:22:09 Versed I.V. 2 mg Faustino Faustino for sedation Guero Jack RN RN 12:22:21 Fentanyl I.V. 100 Faustino Faustino for sedation mcg Guero Jack RN RN 12:35:11 Heparin Bolus I.V. 4000 Faustino Faustino for units Guero Jack anticoagulation RN lidder Log Time Note 11:55:26 Mayo Boyer RT(R) sent for patient. Start room use. 12:03:35 Time tracking: Regular hours (M-F 7:00 - 5:00) 12:03:39 Plan of Care:Hemodynamics will remain stable., Cardiac rhythm will remain stable., Comfort level will be maintained., Respiratory function will remain adequate., Patient/ family verbilizes understanding of procedure., Procedure tolerated without complication., Recovers from procedure without complications.. 12:03:41 Signed procedure consent form obtained from patient. 12:03:48 H&P Date Dictated: 05/07/2018 ER History on chart.. 12:03:55 Patient received from ED to CCL 2 Alert and oriented. Tansferred to table in Supine position. 12:03:56 Warm blankets applied, and sloan hugger turned on for patient comfort. 12:03:57 Correct patient and procedure confirmed by team. 12:03:58 ECG and BP/O2 sat monitors applied to patient. 12:10:09 Vital chart was started 12:11:36 Baseline sample Acquired. 12:11:37 0.9% NaCl 100 ml/hr I.V. was administered by Faustino Jack RN; Per physician; 12:11:39 Rhythm: sinus rhythm 12:11:40 Full Disclosure recording started 12:11:41 Pre-procedure instructions explained to patient. 12:11:42 Pre-op teaching completed and patient verbalized understanding. 12:11:48 Family in waiting room. 12:11:50 Oxygen 2 l/min etCO2 Nasal cannula was administered by Faustino Jack RN; Per physician; 12:11:50 Patient NPO since Midnight. 12:12:01 Heparin Flush Bag (1000units/500ml NS) 2 bags added to field was administered by Faustino Jack RN; used for procedure; 12:12:13 Lidocaine 2% 20ml vial added to field was administered by Faustino Jack RN; for local anesthetic; 12:12:52 Patient allergic to No known allergies 12:12:55 Is the patient allergic to Iodine/contrast media? No. 12:13:01 Is patient on blood thinner?Yes 12:13:04 ACC The patient was administered the following blood thiners within the last 24 hours: ACCPlavix 12:13:08 Patient diabetic? No. 12:13:09 ----Pre-sedation anethsthesia assessment.---- 12:13:12 Previous problem with sedation/anesthesia? No ? 12:13:13 Snore? Yes 12:13:15 Sleep apnea? Yes 12:13:16 Deviated septum? No 12:13:17 Opens mouth fully? Yes 12:13:19 Sticks out tongue? Yes 12:13:22 Airway obstruction? No ? 12:13:24 Dentures? No ? 12:13:27 Pre procedure: right dorsailis pedis pulse 2+ Normal; easily identifiable; not easily obliterated 12:13:35 Patient pain scale 0/10 ?. 12:14:06 IV patent on arrival in right antecubital with 0.9% NaCl at 10ml/hr. 12:14:16 Lab results completed and on chart. 12:14:19 Right groin area was prepped with chlora-prep and draped in sterile fashion 12:14:19 Alarms reviewed by RHarish N. 12:14:20 Sharps counted by scrub and verified by R.N. 12:15:55 Use device set Femoral Dx 12:15:59 ACIST Syringe (15559) opened to sterile field. 12:16:00 Bag Decanter (2002S) opened to sterile field. 12:16:01 ACIST Hand Control (38777) opened to sterile field. 12:16:01 ACIST Manifold (15092) opened to sterile field. 12:16:02 Tegaderm 4 x 4 (1626W) opened to sterile field. 12:16:20 Medline Cath Pack ([id number]) opened to sterile field. 12:16:20 DIAGNOSTIC WIRE .035 260cm J wire (077656) opened to sterile field. 12:16:21 DIAGNOSTIC Multipack 5Fr catheter set (WT6187) opened to sterile field. 12:16:22 SHEATH 5FR [place] (ZTL492) opened to sterile field. 12:16:29 Patient Weight : 207.24 lbs 12:16:55 Lab Result : BUN 12 mg/dl 12:16:55 Lab Result : Hemoglobin 19 g/dl 12:16:55 Lab Result : Creatinine 1.3 mg/dl 12:19:25 Zero performed for pressure channel P1 12::35 --------ALL STOP TIME OUT------ 12::35 Final Timeout: patient, procedure, and site verified with staff and physician. All members of the team are in agreement. 12:21:39 Right groin site verified by team. 12:21:45 Physical assessment completed. ASA score P 2 - A patient with mild systemic disease as per Arben Erickson MD. 12:21:48 Sedation plan: IV Moderate Sedation Medication:Versed, Fentanyl 12:22:09 Versed 2 mg I.V. was administered by Faustino Jack RN; for sedation; 12:22:21 Fentanyl 100 mcg I.V. was administered by Faustino Jack RN; for sedation; 12:24:25 Zero performed for pressure channel P1 12:27:39 Procedure started. 12:27:59 Local anesthetic to right femoral artery with Lidocaine 2% by Arben Erickson MD.INITIAL ACCESS ONLY 12:28:44 A 5 Fr sheath was inserted into the Right Femoral artery 12::57 A MULTIPACK Pigtail 5 Fr catheter was advanced over the wire and used for Procedure. 12:29:07 LV gram done using SWEET 12:29:09 Injector settings: Ml/sec: 10, Volume: 20, 12:29:35 EF : 50 % 12:29:36 Catheter removed. 12:29:41 A MULTIPACK JL 4.0 5Fr catheter was advanced over the wire and used for Procedure. 12:30:53 LCA angiography performed. 12:30:54 Catheter removed. 12:31:00 A MULTIPACK 3DRC 5Fr catheter was advanced over the wire and used for Procedure. 12:31:48 RCA angiography performed. 12:31:50 Catheter removed. 12:32:09 SHEATH 6FR [place] (SVY845) opened to sterile field. 12:32:10 INFLATOR Merit BasixCompak (RO8875) opened to sterile field. 12:32:10 CHOICE PT Extra Support 182cm wire ([id number]) opened to sterile field. 12:32:15 Handley [place] IVUS Catheter (80465O) opened to sterile field. 12:32:58 Sheath upsized to a 6 Fr Short. 12:33:11 GUIDE 6FR HS I SH catheter ([id number]) opened to sterile field. 12:33:25 6 Fr HS1 SH guide catheter was inserted over the wire 12:34:47 CHOICE ES 182 wire advanced. 12:34:48 Wire advanced across lesion. 12:35:11 Heparin Bolus 4000 units I.V. was administered by Faustino Jack RN; for anticoagulation; 12:36:44 IVUS catheter advanced over wire. 12:36:48 IVUS pass to RCA lesion performed. 12:36:49 IVUS catheter removed over wire. 12:37:35 Place stent Inflation Number: 1 A YESY RX 2.5 x 15 stent ([id number]) was prepped and advanced across the Mid RCA. The stent was deployed at 11 DEMARIO for 0:10 (min:sec). 12:39:05 Stent catheter was removed intact over wire. 12:39:06 Wire removed. 12:39:08 Guide catheter removed. 12:39:14 EXOSEAL 6Fr (EX600) opened to sterile field. 12:39:26 Sheath removed intact; hemostasis achieved with Exoseal to the Right Femoral artery. 12:39:49 Procedure ended.(Physican Out) 12:42:37 Fluoroscopy time 03.60 minutes. 12:43:41 Fluoroscopy dose: 666 mGy 12:43:41 Flurop Dose total: 666 12:43:46 Contrast amount:Isovue 300 93ml. 12:44:09 Sharps counted by scrub and verified by R.N. 12:44:13 Post-op/insertion site Right Femoral artery dressed using a 4 x 4 and Tegaderm. 12:44:17 Post-procedure physical assessment completed. ASA score P 2 - A patient with mild systemic disease as per Arben Erickson MD. 12:44:29 Post procedure rhythm: sinus rhythm 12:44:32 Estimated blood loss: 10 ml 12:45:02 Post procedure instruction explained to patient.Patient verbalizes understanding. 12:45:02 Patient needs reinforcement of post procedure teaching. 12:45:34 Procedure type changed to Cath procedure, Diagnostic procedure, LHC, LHC w/Coronaries, FFR/IVUS, Intra-Coronary IVUS Initial, Sedation Charges, Moderate Sedation up to 15 minutes, PCI procedure, Coronary Stent, Coronary Stent Initial 12:46:12 Procedure and supply charges have been captured, reviewed, submitted and are correct. 12:46:14 Procedure Complication : No complications 12:46:16 Vital chart was stopped 12:46:17 See physician's report for complete and final results. 12:46:22 Report given to PCU. 12:46:24 Patient transfered to PCU with Bed. 12:46:26 Procedure ended. 12:46:26 Full Disclosure recording stopped 12:46:29 End room use (Document Last) Intervention Summary Intervention Notes Time ActionType Lesion and Equipment Used Action# Pressure Duration Attributes 12:37:35 Place stent Mid RCA YESY RX 2.5 x 1 11 00:10 15 stent ([id number]) Device Usage Item Name Manufacture Quantity Catalog Number Hospital Part Current M inimal Lot# / Charge Number Stock Stock Serial# Code ACIST Syringe Acist 1 95842 570393 302591 320966 2 0 (40862) Medical Systems Inc Bag Decanter Microtek 1 2001S 508194 07044 486097 5 () Medical Inc. ACIST Hand Acist 1 86284 463339 730217 085945 5 Control Medical (00649) Systems Inc ACIST Manifold Acist 1 00939 371029 923557 345435 5 (10874) Medical Systems Inc Tegaderm 4 x 4 3M 1 1626W 942603 206039 789366 5 (1626W) Medline Cath Medline 1 [id number] 229728 85392 911869 5 Pack ([id number]) DIAGNOSTIC St Luis 1 806089 434337 068561 714442 3 0 WIRE .035 260cm J wire (965392) DIAGNOSTIC Cardinal 1 SY2244 902358 12944 310425 3 0 Multipack 5Fr Health catheter set (QE7784) SHEATH 5FR Terumo 1 RUG811 619113 155965 952359 5 [place] (BAZ901) MULTIPACK Cardinal 1 070492 5 Pigtail 5 Fr Health catheter MULTIPACK JL Cardinal 1 139748 5 4.0 5Fr Health catheter MULTIPACK 3DRC Cardinal 1 069731 5 5Fr catheter Health SHEATH 6FR Terumo 1 YLN971 538398 631564 432826 4 0 [place] (EIY226) INFLATOR Merit Merit 1 GB6530 646056 339289 349648 1 5 Ven[employer]a Technologies (RS5457) CHOICE PT [place] 1 [id number] 069453 231338 228583 5 Extra Support Scientific 182cm wire ([id number]) Handley Handley 1 29571C 149594 596192 124061 8 [place] IVUS Catheter (26913B) GUIDE 6FR HS I Medtronic 1 [id number] 751094 47467 383125 1 SH catheter ([id number]) YESY RX 2.5 x Medtronic 1 [id number] 655502 1815939 758921 5 [id number] 15 stent ([id number]) EXOSEAL 6Fr Cardinal 1 EX600 138770 759603 241500 1 0 (EX600) Health Signature Audit Pierce Stage Time Signature Unsigned Intra-Procedure 05/07/2018 Alysha Wan 12:47:13 PM RT(R) Signatures Monitor : Alysha Wan Signature : RT Date : Time : [facility] [address] [place] [address]
--- NOTE | ~2018-05-07 | DS ---
PATIENT:JILLIAN TINSLEY :62 MEDICAL RECORD: [id number] DISCHARGE SUMMARY ADMISSION DATE: 05/07/18 DISCHARGE DATE: 05/08/18 DATE OF DISCHARGE: 05/08/2018 DIAGNOSES: 1. Angina. 2. Coronary artery disease. 3. PTCA stent LAD and RCA this admission. HOSPITAL COURSE: Mr. Tinsley presents with unstable anginal symptomatology, found to have significant disease of the LAD and RCA, underwent successful PTCA stent of both. Discharged home with the addition of aspirin and Plavix to his medical regimen. Follow up with [facility] in 1 month. TRANSINT:[id number] Voice Confirmation ID: [id number] DOCUMENT ID: [id number] ELADIO ORTEGA MD CC: [id number] DICTATION DATE: 05/08/18821 BRAZER HELPER INDUCTION: 05/08/182158 DIS IN 05/08/18 [facility] [address] [place] [address]
[2018-05-07 10:16] LABS: ALBUMIN 3.5 g/dL (3.4-5.0); ALKALINE PHOSPHATASE 125 U/L (46-116); ALT (SGPT) 56 U/L (10-68); BILIRUBIN - TOTAL 0.55 mg/dL (0.2-1.3); CALC OSMOLALITY 284 mosm/kg (275-300); CALCIUM 9.1 mg/dL (8.5-10.1); CARBON DIOXIDE 32.3 mmol/L (21.0-32.0); CHLORIDE - SERUM 104 mmol/L (98-107); CREATININE - SERUM 1.3 mg/dL (0.6-1.3); GLUCOSE 126 mg/dL (74-106); POTASSIUM - SERUM 3.7 mmol/L (3.5-5.1); PROTEIN - SERUM 7.2 g/dL (6.4-8.2); SODIUM 142 mmol/L (136-145); UREA NITROGEN 12 mg/dL (7-18); eGFR NON AFRICAN AMERICAN 61 mL/min (90-120)
[2018-05-07 10:17] LABS: BASOPHILS 0.5 % (0-2); EOSINOPHILS 5.3 % (0-7); HEMATOCRIT 53.9 % (42.0-54.0); IMMATURE GRANULOCYTES 0.2 % (0-5); LYMPHOCYTES 37.7 % (15-50); MCH 33.3 pg (26.0-34.0); MCHC 35.3 g/dL (31.0-37.0); MCV 94.6 fL (80.0-100.0); MONOCYTES 11.4 % (2-11); NEUTROPHILS 44.9 % (40-80); PLATELET COUNT 177 10x3/uL (130-400); RDW 12.4 % (11.5-14.5); WBC 6.1 10x3/uL (4.8-10.8)
[2018-05-07 10:24] LABS: PRO BNP 42 pg/mL (0-125)
[2018-05-07 10:27] LABS: TROPONIN-I < 0.017 ng/mL (0.000-0.060)
[2018-05-07 10:50] VITALS: BP 106/50
[2018-05-07 11:05] VITALS: BP 112/75
[2018-05-07 11:40] VITALS: BP 104/63
[2018-05-07 11:45] VITALS: BP 111/68
[2018-05-07 13:19] VITALS: BP 122/77; Ht 172.7 cm; Wt 90.9 kg
[2018-05-07 20:00] VITALS: BP 108/54
[2018-05-08 04:00] VITALS: BP 117/65
== END 2018-05-08 12:18 | disposition home or self-care (01) ==
LOC: D.ER 09:50 → D.EDHOLD 10:11 → OBSVTIME 10:11 → D.CLR 10:11 → D.M2 12:54 → D.CLR 05-08 08:27
PROVIDERS: Family Medicine
DX: I25.110 Atherosclerotic heart disease of native coronary artery with unstable angina pectoris (principal); T82.855A Stenosis of coronary artery stent, initial encounter; Y83.8 Other surgical procedures as the cause of abnormal reaction of the patient, or of later complication, without mention of misadventure at the time of the procedure; I10 Essential (primary) hypertension; E78.5 Hyperlipidemia, unspecified

== ENCOUNTER → 2018-05-13 10:05 | Outpatient (CLI) | payer SELFPAY ==
[2018-05-07 13:19] VITALS: BMI 30.4
== END | disposition home or self-care (01) ==
LOC: D.US 10:05
DX: S30.1XXA Contusion of abdominal wall, initial encounter (principal); X58.XXXA Exposure to other specified factors, initial encounter

== ENCOUNTER 2018-10-27 10:37 | Observation (INO) | payer OTHER, MEDICAID | END 2018-10-27 21:13 | disposition home or self-care (01) | LOC: D.ER 10:37 → D.M2 12:32 | PROVIDERS: ADMIT Internal Medicine Interventional Cardiology | DX: I25.110 Atherosclerotic heart disease of native coronary artery with unstable angina pectoris (principal); I10 Essential (primary) hypertension; E78.5 Hyperlipidemia, unspecified ==

== ENCOUNTER 2019-11-07 10:11 | Observation (INO) | payer OTHER ==
[~2019-11-07] VITALS: Ht 172.7 cm; Wt 95.5 kg
--- NOTE | ~2019-11-07 | HEMODYNAMI ---
PATIENT:JILLIAN TINSLEY MEDICAL RECORD: [id number] : 62 LOCATION:[facility] D.2122 ADMISSION DATE: 11/07/19 Generatedon:11/08/20199:06 Patient name: JILLIAN TINSLEY Patient #: [id number] SSN: [id number] : 1960 Date of study: 11/08/2019 Page: Of Hemodynamic Procedure Report Patient Data Patient Demographics Procedure consent was obtained First Name: JILLIAN Gender: Male Last Name: LAUREANO : 1960 Patient #: [id number] Age: 59 year(s) Race: SSN: [id number] Additional ID: [id number] Contact details Address: [address] [place] [address] State: [place] City: [place] Zip code: [address] Past Medical History Allergies: No known allergies Admission Admission Data Admission Date: 11/07/2019 Admission Time: 12:34 Arrival Date: 11/08/2019 Arrival Time: 0:00 Room #: D2122 Height (in.): 68.11 BSA: 2.09 (m2) Height (cm.): 173 BMI: 31.74 (kg/m2) Weight (lbs.): 209.44 Weight (kg.): 95 Lab Results Lab Result Date: 11/08/2019 Lab Result Time: 0:00 Biochemistry Name Units Result Min Max BUN mg/dl 9 --(*---)-- 7 18 CK-MB ng/ml 1.4 --(-*--)-- 0 3.6 Creatinine mg/dl 1.3 --(---*)-- 0.6 1.3 eGFR ml/min 60 *-(----)-- 90 120 NONAFRICAN Troponin l ng/ml 0.017 --(-*--)-- 0 0.06 CBC Name Units Result Min Max Hematocrit % 52.5 --(---*)-- 42 54 Hemoglobin g/dl 17.6 --(----)*- 13.5 17.5 Procedure Procedure Types Cath Procedure Diagnostic Procedure C [facility] w/Coronaries Sedation Charges Moderate Sedation up to 15 minutes Procedure Description Procedure Date Procedure Date: 11/08/2019 Procedure Start Time: 8:50 Procedure End Time: 9:04 Procedure Staff Name Function Kodak Garcia MD Performing Physician Kiki Chi RT Monitor Gena Kauffman RT Scrub Neena Braxton RN Nurse Procedure Data Cath Procedure Fluoroscopy Diagnostic fluoroscopy Total fluoroscopy Time: 1.2 time: 1.2 min min Diagnostic fluoroscopy Total fluoroscopy dose: 671 dose: 671 mGy mGy Contrast Material Contrast Material Type Amount (ml) Isovue 300 83 Entry Location Entry Primary Successful Side Size Upsize Upsize Entry Closure Succes sful Closure Location (Fr) 1 (Fr) 2 (Fr) Remarks Device Remarks Femoral Right 5 Fr Exoseal artery Estimated blood loss: 5 ml Diagnostic catheters Device Type Used For End Catheter Placement MULTIPACK JL 4.0 5Fr Left Coronary catheter Angiography MULTIPACK 3DRC 5Fr Right Coronary catheter Angiography MULTIPACK Pigtail 5 Fr LV Angiography catheter Procedure Complications No complications Procedure Medications Medication Administration Route Dosage 0.9% NaCl I.V. 100 ml/hr Oxygen etCO2 Nasal cannula 2 l/min Lidocaine 2% added to field 20 Heparin Flush Bag added to field 2 bags (1000units/500ml NS) Plavix P.O. 75 mg Versed I.V. 2 mg Fentanyl I.V. 50 mcg Solumedrol I.V. 125 mg Hemodynamics Rest BSA: 2.09 (m2) HGB: 17.6 (g/dl) O2 Consumption: Estimated: 239.89 (ml/min) O2 Co nsumption indexed: Estimated:114.78 (ml/min/m) Heart Rate: 62 (bpm) Pressure Samples Time Site Value (mmHg) Purpose Heart Use Rate(bpm) 8:56 LV 135/15,18 Snapshot 83 8:57 AO 131/84(106) Pullback 84 8:57 LV 136/15,19 Pullback 84 Gradients Valve Time Site 1 Site 2 Mean SEP/DFP Peak To Heart Use (mmHg) (sec/min) Peak Rate (mmHg) (bpm) Aortic 8:57 LV AO 4 10 5 84 136/15,19 131/84(106) Calculations Valve P-P Mean Valve Index Valve Source Name Gradient Area Flow (cm2) Aortic 5 4 5 4 Snapshots Pre Cath Intra NCS Post Cath Vital Signs Time Heart Resp SPO2 etCO2 NIBP (mmHg) Rhythm Pain Sedation Rate (ipm) (%) (mmHg) Status Level (bpm) 8:37:33 60 11 95 43 163/105(123) NSR 0 (11) 10(A) , No pain 8:42:01 75 15 96 33.2 150/99(127) NSR 0 (11) 10(A) , No pain 8:46:25 79 10 97 36.9 169/96(113) NSR 0 (11) 10(A) , No pain 8:50:55 65 12 98 48.3 136/90(106) NSR 0 (11) 9(A) , No pain 8:55:16 82 10 96 45.3 156/88(118) NSR 0 (11) 9(A) , No pain 8:59:40 81 10 97 48.3 147/97(113) NSR 0 (11) 10(A) , No pain 9:04:00 81 11 94 33.2 143/99(118) NSR 0 (11) 10(A) , No pain Medications Time Medication Route Dose Verified Delivered Reason Notes Ef fectiveness by by 8:36:28 0.9% NaCl I.V. 100 Kodak Chaudhary used for ml/hr [facility] Jadiel Braxton procedure MD NAGY 8:36:35 Oxygen etCO2 2 Kodak Chaudhary used for Nasal l/min [facility] Jadiel Braxton procedure cannula MD NAGY 8:36:40 Lidocaine 2% added 20ml Kodak Candelario for local to vial [facility] anesthetic field MD EARLY 8:36:44 Heparin Flush added 2 Kodak Candelario used for Bag to bags [facility] procedure (1000units/500ml field MD EARLY NS) 8:38:30 Plavix P.O. 75 mg Kodak Chaudhary for [facility] Jadiel Braxton antiplatelet MD NAGY therapy 8:48:09 Versed I.V. 2 mg Kodak Cedenoa for sedation [facility] Jadiel Braxton MD RN 8:48:19 Fentanyl I.V. 50 Kodak Cedenoa for sedation mcg [facility] Jadiel Braxton MD RN 9:03:40 Solumedrol I.V. 125 Kodakaleksander Del Castillo MD tire trucker Log Time Note 8:12:02 Informed consent obtained and on chart 8:14: Lab Result : BUN 9 mg/dl 8:: Lab Result : eGFR NONAFRICAN 60 ml/min 8:: Lab Result : Hemoglobin 17.6 g/dl 8:: Lab Result : Hematocrit 52.5 % 8:14: Lab Result : Creatinine 1.3 mg/dl 8:: Lab Result : CK-MB 1.4 ng/ml 8:14: Lab Result : Troponin l 0.017 ng/ml 8:14:37 Procedure Status Urgent Heart Cath (IP). 8:14:41 Time tracking: Regular hours (M-F 7:00 - 5:00) 8:14:46 Gena MAGANA(R) sent for patient. Start room use. 8:14:54 Plan of Care:Hemodynamics will remain stable., Cardiac rhythm will remain stable., Comfort level will be maintained., Respiratory function will remain adequate., Patient/ family verbilizes understanding of procedure., Procedure tolerated without complication., Recovers from procedure without complications.. 8:15:06 Arrival Date: 11/08/2019 12:00:00 AM 8:15:12 Patient Height : 68.11 inches 8:15:18 Patient Weight : 209.44 lbs 8:29:44 Patient received from Med II to CCL 1 Alert and oriented. Tansferred to table in Supine position. 8:29:46 Warm blankets applied, and sloan hugger turned on for patient comfort. 8:29:47 Correct patient and procedure confirmed by team. 8:29:48 ECG and BP/O2 sat monitors applied to patient. 8:36:18 Vital chart was started 8:36:28 0.9% NaCl 100 ml/hr I.V. was administered by Neena Braxton RN; used for procedure; Verbal order read back and verified. 8:36:35 Oxygen 2 l/min etCO2 Nasal cannula was administered by Neena Braxton RN; used for procedure; Verbal order read back and verified. 8:36:40 Lidocaine 2% 20ml vial added to field was administered by Kodak Garcia MD; for local anesthetic; Verbal order read back and verified. 8:36:44 Heparin Flush Bag (1000units/500ml NS) 2 bags added to field was administered by Kodak Garcia MD; used for procedure; Verbal order read back and verified. 8:37:34 Baseline sample Acquired. 8:37:43 Rhythm: sinus rhythm 8:37:45 Full Disclosure recording started 8:37:46 8:37:58 H&P Date Dictated: 11/08/2019 Within 30 days and on chart., ER History on chart.. 8:38:00 Pre-procedure instructions explained to patient. 8:38:00 Pre-op teaching completed and patient verbalized understanding. 8:38:04 Family in patients room. 8:38:07 Patient NPO since Midnight. 8:38:19 Patient allergic to No known allergies 8:38:23 Is the patient allergic to Iodine/contrast media? No. 8:38:26 Was the patient premedicated? Yes 8:38:30 Plavix 75 mg P.O. was administered by Neena Braxton RN; for antiplatelet therapy; Verbal order read back and verified. 8:38:33 ACC The patient was administered the following blood thiners within the last 24 hours: ACCPlavix 8:38:36 Patient diabetic? No. 8:38:38 ----Pre-sedation anethsthesia assessment.---- 8:38:43 Previous problem with sedation/anesthesia? No ? 8:38:46 Snore? Yes 8:38:49 Sleep apnea? No 8:38:52 Deviated septum? No 8:38:55 Opens mouth fully? Yes 8:38:58 Sticks out tongue? Yes 8:39:04 Airway obstruction? No ? 8:39:09 Dentures? No ? 8:39:26 Pre procedure: right dorsailis pedis pulse 1+ Palpable, but thready & weak; easily obliterated 8:39:41 IV patent on arrival in right hand with 0.9% NaCl at KVO. 8:39:46 Lab results completed and on chart. 8:39:51 Stress Test: no; N/A ? 8:39:58 Right groin area was prepped with chlora-prep and draped in sterile fashion 8:40:00 Alarms reviewed by R. N. 8:40:01 Sharps counted by scrub and verified by R.N. 8:40:09 Use device set Femoral Dx 8:40:10 ACIST Syringe (02836) opened to sterile field. 8:40:11 Bag Decanter (2002S) opened to sterile field. 8:40:12 Medline Cath Pack ([id number]) opened to sterile field. 8:40:14 ACIST Hand Control (86170) opened to sterile field. 8:40:15 ACIST Manifold (13445) opened to sterile field. 8:40:16 DIAGNOSTIC Multipack 5Fr catheter set (SP2064) opened to sterile field. 8:40:17 Tegaderm 4 x 4 (1626W) opened to sterile field. 8:40:19 SHEATH 5FR [place] (LYI797) opened to sterile field. 8:40:20 EMERALD Guide Wire (662-009) opened to sterile field. 8:44:57 Risk of Mortality: 3.0 8:45:01 Risk of blood transfusion: 0.2 8:45:06 Risk of KARI: 9.7 8:46:06 Physician arrived 8:46:07 --------ALL STOP TIME OUT------ 8:46:08 Final Timeout: patient, procedure, and site verified with staff and physician. All members of the team are in agreement. 8:46:10 Right groin site verified by team. 8:46:16 Fire Safety Assessment: A--An alcohol-based skin anteseptic being used preoperatively., C--Open oxygen or nitrous oxide is being used., D--An ESU, laser, or fiber-optic light is being used. 8:46:23 Physical assessment completed. ASA score P 2 - A patient with mild systemic disease as per Kodak Garcia MD. 8:46:31 2) 60-89 Mildly reduced kidney function, and other findings (as for stage 1) point to kidney disease. 8:46:37 Maximum allowable contrast dose (3.7 X eGFR X 0.75)166 ml. 8:46:43 Sedation plan: IV Moderate Sedation Medication:Versed, Fentanyl 8:48:09 Versed 2 mg I.V. was administered by Neena Braxton RN; for sedation; Verbal order read back and verified. 8:48:19 Fentanyl 50 mcg I.V. was administered by Neena Braxton RN; for sedation; Verbal order read back and verified. 8:50:00 Procedure started. 8:50:13 Zero performed for pressure channel P1 8:50:38 Local anesthetic to right femoral artery with Lidocaine 2% by Kodak Garcia MD.INITIAL ACCESS ONLY 8:51:00 A 5 Fr sheath was inserted into the Right Femoral artery 8:51:53 A MULTIPACK JL 4.0 5Fr catheter was advanced over the wire and used for Left Coronary Angiography. 8:52:31 LCA angiography performed. 8:53:15 Injector settings: Ml/sec: 3, Volume: 6, 8:54:09 Catheter removed. 8:54:17 A MULTIPACK 3DRC 5Fr catheter was advanced over the wire and used for Right Coronary Angiography. 8:55:37 RCA angiography performed. 8:55:42 Injector settings: Ml/sec: 3, Volume: 6, 8:55:43 Catheter removed. 8:56:03 A MULTIPACK Pigtail 5 Fr catheter was advanced over the wire and used for LV Angiography. 8:56:57 LV hemodynamics recorded. 8:56:59 LV gram done using SWEET 8:57:24 EF : 45 % 8:58:15 EXOSEAL 5Fr (EX500) opened to sterile field. 8:58:18 Catheter removed. 8:58:59 Sheath removed intact; hemostasis achieved with Exoseal to the Right Femoral artery. 8:59:02 Procedure ended.(Physican Out) 9:00:08 Contrast amount:Isovue 300 83ml. 9:00:15 Fluoroscopy time 01.20 minutes. 9:00:22 Flurop Dose total: 671 9:00:22 Fluoroscopy dose: 671 mGy 9:00:30 Dose Area Product 20451 mGy/cm. 9:00:34 Maximum allowable dose exceeded? No. 9:00:36 Sharps counted by scrub and verified by R.N. 9:00:41 Post-op/insertion site Right Femoral artery dressed using a 4 x 4 and Tegaderm. 9:00:47 Post-procedure physical assessment completed. ASA score P 2 - A patient with mild systemic disease as per Kodak Garcia MD. 9:00:52 Post procedure rhythm: unchanged. 9:00:56 Estimated blood loss: 5 ml 9:00:58 Post procedure instruction explained to patient.Patient verbalizes understanding. 9:01:00 Patient needs reinforcement of post procedure teaching. 9:02:53 Procedure type changed to Cath procedure, Diagnostic procedure, LHC, [facility] w/Coronaries, Sedation Charges, Moderate Sedation up to 15 minutes 9:02:55 Procedure and supply charges have been captured, reviewed, submitted and are correct. 9:03:40 Solumedrol 125 mg I.V. was administered by Neena Braxton RN; Per physician; Verbal order read back and verified. 9:04:06 Procedure Complication : No complications 9:04:13 Vital chart was stopped 9:04:17 [facility] Findings: mild to moderate CAD (<70%) 9:04:19 Operative report dictated upon procedure completion. 9:04:20 See physician's report for complete and final results. 9:04:24 Report given to [facility]. 9:04:29 Patient transfered to [facility] with Bed. 9:04:32 Procedure ended. 9:04:32 Full Disclosure recording stopped 9:04:40 End room use (Document Last) Device Usage Item Name Manufacture Quantity Catalog Hospital Part Current Minimal L ot# / Number Charge Number Stock Stock Serial# Code ACIST Acist 1 46167 292273 843476 990752 20 Syringe Medical (72916) Systems Inc Bag Microtek 1 105993 28367 864913 5 Decanter Medical Inc. () Medline Medline 1 [id number] 375244 31333 490714 5 Cath Pack ([id number]) ACIST Hand Acist 1 67070 180924 623152 763376 5 Control Medical (01883) Systems Inc ACIST Acist 1 43011 269124 877865 996193 5 Manifold Medical (96014) Systems Inc DIAGNOSTIC Cardinal 1 [id number] 779573 77760 450605 30 Kids Write Network[facility] [employer] 5Fr catheter set (MQ7491) Tegaderm 4 3M 1 1626W 308084 218438 093866 5 x 4 (1626W) SHEATH 5FR Terumo 1 [id number] 198701 082018 418714 5 [place] (WBX080) EMERALD Cardinal 1 009-368 204645 571919 956267 5 Guide Wire Health (787-781) MULTIPACK Cardinal 1 302734 5 JL 4.0 5Fr Health catheter MULTIPACK Cardinal 1 721525 5 3DRC 5Fr Health catheter MULTIPACK Cardinal 1 052751 5 Pigtail 5 Health Fr catheter EXOSEAL 5Fr Cardinal 1 EX500 209852 523759 258224 10 (EX500) Health Signature Audit Ferdinand Stage Time Signature Unsigned Intra-Procedure 11/08/2019 Kiki 9:05:02 AM Alon RT(R) (CV) Intra-Procedure 11/08/2019 Neena Braxton 9:05:42 AM RN Intra-Procedure 11/08/2019 Kodak Roldan 9:06:12 AM Jadiel EARLY [id number] [place] [address]
[2019-11-07 10:41] LABS: BASOPHILS 0.5 % (0-2); EOSINOPHILS 3.3 % (0-7); HEMATOCRIT 50.9 % (42.0-54.0); HEMOGLOBIN 17.3 g/dL (13.5-17.5); IMMATURE GRANULOCYTES 0.3 % (0-5); LYMPHOCYTES 26.7 % (15-50); MCH 32.6 pg (26.0-34.0); MCV 95.9 fL (80.0-100.0); MEAN PLATELET VOLUME 10.4 fL (7.4-10.4); MONOCYTES 11.5 % (2-11); NEUTROPHILS 57.7 % (40-80); PLATELET COUNT 163 10x3/uL (130-400); RBC 5.31 10x6/uL (4.20-6.10); RDW 12.1 % (11.5-14.5); WBC 6.4 10x3/uL (4.8-10.8)
[2019-11-07 10:49] LABS: APTT 28.4 SECONDS (22.8-39.4); INR 0.97 (0.85-1.17); PROTIME 12.8 SECONDS (11.6-15.0)
--- NOTE | 2019-11-07 10:57 | NUR ---
PT REPORTS RELIEF TO L NECK DISCOMFORT AFTER RECEIVING NTG. PT REFUSING SECOND NITRO D/T CONCERN FOR HEADACHE.
--- NOTE | 2019-11-07 11:19 | NUR ---
PT RESTING ON BED. PT SPOUSE AT BEDSIDE. PT DENIES NEEDS AT THIS TIME.
[2019-11-07 11:30] VITALS: BP 107/63
[2019-11-07 11:41] LABS: ALKALINE PHOSPHATASE 179 U/L (30-120); ALT (SGPT) 73 U/L (10-68); BILIRUBIN - TOTAL 0.58 mg/dL (0.2-1.3); CALCIUM 8.3 mg/dL (8.5-10.1); CARBON DIOXIDE 26.8 mmol/L (21.0-32.0); CHLORIDE - SERUM 103 mmol/L (98-107); CKMB 2.1 U/L (0.0-3.6); CREATINE KINASE 249 UL (21-232); CREATININE - SERUM 1.5 mg/dL (0.6-1.3); POTASSIUM - SERUM 3.7 mmol/L (3.5-5.1); PROTEIN - SERUM 6.8 g/dL (6.4-8.2); SODIUM 138 mmol/L (136-145); UREA NITROGEN 10 mg/dL (7-18); eGFR NON AFRICAN AMERICAN 51 mL/min (90-120)
[2019-11-07 11:43] LABS: CALC OSMOLALITY 280 mosm/kg (275-300); GLUCOSE 215 mg/dL (74-106)
[2019-11-07 11:51] LABS: TROPONIN-I < 0.017 ng/mL (0.000-0.060)
[2019-11-07 12:01] LABS: ALBUMIN 3.3 g/dL (3.4-5.0)
--- NOTE | 2019-11-07 12:15 | NUR ---
PT RESTING ON BED. NO S/S OF ACUTE DISTRESS NOTED. PT SPOUSE AT SIDE.
--- NOTE | 2019-11-07 13:25 | NUR ---
PT UPDATED ON PLAN OF CARE. NO S/S OF ACUTE DISTRESS NOTED.
--- NOTE | 2019-11-07 14:07 | NUR ---
PT ARRIVED VIA WHEELCHIAR TO ROOM, ALERT AND ORIENTED, UP WITHOUT ASSISTANCE. ABLE TO ANSWER QUESTIONS APPROPRIATELY. NO FAMILY AT BEDSIDE.
[2019-11-07 14:25] VITALS: BP 107/63; Ht 172.7 cm; Wt 95.5 kg
--- NOTE | 2019-11-07 17:19 | NUR ---
PT AWAKE AND ORIENED, LYING IN BED WATCHING TV. NO COMPLAINTS OF PAIN OR DISCOMFORT AT THIS TIME. ALL QUESTIONS ANSWERED TO THE BEST OF MY ABILITY. AT BEDSIDE. CL IN REACH, SRX2.
--- NOTE | 2019-11-07 20:00 | NUR ---
INITIAL ROUNDS AND REPORT COMPLETED. PT ALERT/ORIENTED AND RESTING IN BED. PT TEACHING ON NPO AFTER MIDNIGHT. NS @ 125ML/HR INFUSING TO RIGHT HAND. NONLABORED RESPIRATIONS ON ROOM AIR. NO CURRENT CHEST PAIN. CPOC.
[2019-11-07 20:54] VITALS: BP 137/92
[2019-11-07] MEDS ORDERED: GABAPENTIN100 MG PO (22:20)
[2019-11-08] VITALS: BP 148/96
--- NOTE | 2019-11-08 00:11 | NUR ---
TYLENOL GIVEN FOR HEADACHE. HOME MED OF GABAPENTIN CONTINUED AND DOSE ADMINISTERED.
[2019-11-08 04:00] VITALS: BP 121/80
--- NOTE | 2019-11-08 05:25 | NUR ---
PT HAS RESTED WELL THROUGH THE NIGHT. SR PER TELEMETRY. NO REPORTS OF CHEST PAIN. HAS BEEN NPO SINCE MIDNIGHT UNTIL SEEN BY CARDIO THIS AM. IVF INFUSING. CPOC.
[2019-11-08 06:30] LABS: BASOPHILS 0.6 % (0-2); EOSINOPHILS 5.2 % (0-7); HEMATOCRIT 52.5 % (42.0-54.0); HEMOGLOBIN 17.6 g/dL (13.5-17.5); IMMATURE GRANULOCYTES 0.3 % (0-5); LYMPHOCYTES 37.7 % (15-50); MCH 32.7 pg (26.0-34.0); MCHC 33.5 g/dL (31.0-37.0); MCV 97.4 fL (80.0-100.0); MEAN PLATELET VOLUME 10.6 fL (7.4-10.4); MONOCYTES 11.9 % (2-11); NEUTROPHILS 44.3 % (40-80); PLATELET COUNT 159 10x3/uL (130-400); RBC 5.39 10x6/uL (4.20-6.10); RDW 12.1 % (11.5-14.5); WBC 6.7 10x3/uL (4.8-10.8)
[2019-11-08 07:08] LABS: ALBUMIN 3.1 g/dL (3.4-5.0); ALKALINE PHOSPHATASE 155 U/L (30-120); ALT (SGPT) 65 U/L (10-68); CALCIUM 8.1 mg/dL (8.5-10.1); CARBON DIOXIDE 29.7 mmol/L (21.0-32.0); CHLORIDE - SERUM 106 mmol/L (98-107); CKMB 1.4 U/L (0.0-3.6); CREATINE KINASE 151 UL (21-232); CREATININE - SERUM 1.3 mg/dL (0.6-1.3); POTASSIUM - SERUM 3.7 mmol/L (3.5-5.1); PROTEIN - SERUM 6.5 g/dL (6.4-8.2); SODIUM 140 mmol/L (136-145); UREA NITROGEN 9 mg/dL (7-18); eGFR NON AFRICAN AMERICAN 60 mL/min (90-120)
[2019-11-08 07:09] LABS: CALC OSMOLALITY 280 mosm/kg (275-300); GLUCOSE 153 mg/dL (74-106); TROPONIN-I < 0.017 ng/mL (0.000-0.060)
--- NOTE | 2019-11-08 08:20 | NUR ---
PT TAKEN TO ORCHESTRATOR.
[2019-11-08 08:28] LABS: CHOL - HDL RATIO 5.1 ratio (2.3-4.9); LDL-HDL RATIO 3.2 ratio (1.5-3.5)
--- NOTE | 2019-11-08 09:20 | NUR ---
PT BACK FROM CASH CONTRO[facility]ER. SITE C/D/I. PULSE PRESENT. PT AWAKE AND ORIENTED, LYING IN BED. AT BEDSIDE. NO COMPLAINTS OR CONCERNS AT THIS TIME. PT TO D/C AT 1100AM. CL IN REACH, SRX2. ALL QUESTIONS ANSWERED OT THE BEST OF MY ABILITY. DR. KEMP ROUNDED IN ROOM.
--- NOTE | 2019-11-08 11:22 | NUR ---
PT ESCORTED OUT VIA WHEELCHIAR TO [facility].
--- NOTE | 2019-11-09 15:03 | HP ---
PATIENT: JILLIAN TINSLEY MEDICAL RECORD: [id number] ACCOUNT: [id number] LOCATION:[address] : 62 ADMISSION DATE: 11/07/19 PCP: GIOVANA, DOCTOR HISTORY AND PHYSICAL EXAMINATION ADMISSION AND OBSERVATION NOTE HISTORY OF PRESENT ILLNESS: A 59-year-old gentleman with a known history of coronary artery disease, status post intervention, most recently LAD approximately 14 months ago, history of hypertension, diabetes, strong family history of coronary artery disease admitted with chest tightness and pressure, intermittent reminiscent of his angina. We are asked to see him concerning his cardiovascular status. PAST MEDICAL HISTORY: Includes; 1. History of hypertension. 2. Hyperlipidemia. 3. Diabetes mellitus. 4. Coronary artery disease as described above. SOCIAL HISTORY: Nonsmoker, nondrinker. He is not as active as previously due to change in jobs as [employer]. ALLERGIES: None known. MEDICATIONS: Include Plavix 75 every day, aspirin 81 every day, carvedilol 6.25 b.i.d., Zocor 40 every day, Zantac 75 every day, Naprosyn 250 b.i.d. REVIEW OF SYSTEMS: The patient reports easy bruising but reports no swollen glands. The patient reports no fever, no night sweats, no significant weight gain, no significant weight loss. No significant exercise tolerance. The patient reports no dry eyes, no irritation, no vision change. Patient reports no difficulty hearing and no ear pain. Patient reports no frequent nose bleeds or nose and sinus problems. Patient reports on arm pain on exertion. No shortness of breath while lying down. No history of heart murmur. Patient reports no cough, no wheezing or coughing up blood. Patient reports no abdominal pain, no vomiting. Normal appetite. No diarrhea and not vomiting blood. No nausea and no constipation. Patient reports no incontinence. No difficulty urinating. No hematuria. No increased frequency. Patient reports no muscle aches. No weakness, no arthralgias, no back pain. No swelling of the extremities. Patient reports no abnormal mole, no jaundice, no rashes. Reports no loss of consciousness. No weakness and no numbness. No seizures, dizziness, or headaches. The patient reports no depression, no sleep disturbance, feeling safe in a relationship and no alcohol abuse. Patient reports on fatigue. Reports no runny nose or sinus pressure. No itching, no hives, and no frequent sneezing. PHYSICAL EXAMINATION: GENERAL: No acute distress, appears stated age. VITAL SIGNS: Blood pressure 121/80, pulse 60. HEENT: Normocephalic, atraumatic. NECK: No JVD or bruit. HEART: Regular. Questionable S4 gallop. LUNGS: Good air excursion. ABDOMEN: Soft, nontender. HISTORY AND PHYSICAL [id number] JILLIAN TINSLEY EXTREMITIES: Pulses well preserved, 2+. There is no edema. DIAGNOSTIC DATA: EKG shows nonspecific ST-T changes inferolaterally. IMPRESSION: Acute coronary syndrome, known history of coronary artery disease, multiple risk factors. PLAN: Angiography, intervention based on the above. TRANSINT:[id number] Voice Confirmation ID: [id number] DOCUMENT ID: [id number] DEE DEE ESQUEDA MD at 1503 CC: [id number] DICTATION DATE: 11/08/19 0932 COUNSELLING PSYCHOLOGIST: 11/08/19 1014 DIS IN 11/08/19 [address] [place] [address]
--- NOTE | 2019-11-09 15:03 | OP ---
PATIENT NAME: JILLIAN TINSLEY MEDICAL RECORD: [id number] :62 LOCATION:D.M2 D.2121 ADMISSION DATE:11/07/19 SURGEON: DEE DEE ESQUEDA MD DATE OF OPERATION: 11/08/2019 PROCEDURE: Left heart catheterization, selective coronary angiography, right femoral artery approach. CATHETERS: A 5-Tajik sheath, 5/4 left and right Jossie, 5/4 pig. The procedure was well tolerated. The patient returned to the sullivan. Sheath removed. Adequate hemostasis obtained. FINDINGS: Left ventriculography shows mild hypo with LV function appears preserved at 50%. CORONARY ANATOMY: LEFT MAIN: Left main is free of disease. LAD: The area of previous stenting is widely patent. No evidence of restenosis. No progression of lummi disease. CIRCUMFLEX: Left dominant system. The left giving rise to PDA, free of disease. RIGHT CORONARY ARTERY: Rudimentary, previous stent is widely patent. IMPRESSION: No evidence of restenosis. No progression of lummi disease. Continue risk factor modification and medical management. TRANSINT:[id number] Voice Confirmation ID: [id number] DOCUMENT ID: [id number] DEE DEE ESQUEDA MD at 1503 CC: [id number] DICTATION DATE: 11/08/19 0933 EVENT TECHNICIAN: 11/08/192039 DIS IN 11/08/19 [address] [place] [address]
--- NOTE | 2019-11-09 15:03 | DS ---
PATIENT:JILLIAN TINSLEY :62 MEDICAL RECORD: [id number] DISCHARGE SUMMARY ADMISSION DATE: 11/07/19 DISCHARGE DATE: 11/08/19 OBSERVATION NOTE. PROBLEM LIST: 1. Chest pain. 2. Hypertension. 3. Hyperlipidemia. 4. Abnormal ECG. 5. Hyperglycemia. BRIEF HISTORY AND HOSPITAL COURSE: Admitted with symptoms consistent with acute coronary syndrome with known history of coronary artery disease, underwent angiography which showed evidence of restenosis. He was discharged home in good condition. MEDICATIONS: Same as prior to admission. DIET: AHA diet. ACTIVITY: As tolerated. TRANSINT:[id number] Voice Confirmation ID: [id number] DOCUMENT ID: [id number] DEE DEE ESQUEDA MD at 1503 CC: [id number] DICTATION DATE: 11/08/19934 PLASTIC MAKER: 11/09/19 0150 DIS IN 11/08/19 [id number] [place] [address]
== END 2019-11-08 11:24 | disposition home or self-care (01) ==
LOC: D.ER 10:11 → OBSVTIME 12:34 → D.M2 12:34 → D.ER 12:34 → D.M2 12:34
PROVIDERS: Family Medicine; ADMIT Internal Medicine Interventional Cardiology; ATTEND Internal Medicine Interventional Cardiology
DX: I24.9 Acute ischemic heart disease, unspecified (principal); I10 Essential (primary) hypertension; E78.5 Hyperlipidemia, unspecified; R94.31 Abnormal electrocardiogram [ECG] [EKG]; R73.9 Hyperglycemia, unspecified; R07.9 Chest pain, unspecified; I25.10 Atherosclerotic heart disease of native coronary artery without angina pectoris

== ENCOUNTER 2020-01-16 16:05 | Emergency (ER) | payer OTHER ==
[2019-11-07 14:25] VITALS: BMI 32.0
[~2020-01-16 16:05] MED LIST changes: +GABAPENTIN100 MG PO
[2020-01-17] MEDS ORDERED: EPIPEN 2-P0.3 MG/0.3 IM (00:37)
[2020-01-17] MEDS ORDERED: STERAPRED DS 1010 MG PO (00:37)
== END 2020-01-16 16:40 | disposition left against medical advice (07) ==
LOC: D.ER 16:05
DX: M79.89 Other specified soft tissue disorders (principal)

== ENCOUNTER 2020-01-16 20:12 | Emergency (ER) | payer OTHER ==
[~2020-01-16] VITALS: Ht 172.7 cm; Wt 95.5 kg
[2020-01-16 20:31] VITALS: Ht 172.7 cm; Wt 95.5 kg
[2020-01-16 23:19] LABS: BASOPHILS 0.2 % (0-2); EOSINOPHILS 2.4 % (0-7); HEMATOCRIT 55.5 % (42.0-54.0); HEMOGLOBIN 19.4 g/dL (13.5-17.5); IMMATURE GRANULOCYTES 0.2 % (0-5); LYMPHOCYTES 32.2 % (15-50); MCH 33.3 pg (26.0-34.0); MCV 95.2 fL (80.0-100.0); MEAN PLATELET VOLUME 10.8 fL (7.4-10.4); MONOCYTES 9.2 % (2-11); NEUTROPHILS 55.8 % (40-80); RBC 5.83 10x6/uL (4.20-6.10); RDW 12.3 % (11.5-14.5); WBC 9.3 10x3/uL (4.8-10.8)
[2020-01-16 23:20] LABS: PLATELET COUNT 197 10x3/uL (130-400)
[2020-01-16 23:32] LABS: ANION GAP 11.2 mmol/L (8-16); CALCIUM 9.7 mg/dL (8.5-10.1); CARBON DIOXIDE 26.8 mmol/L (21.0-32.0); CREATININE - SERUM 1.5 mg/dL (0.6-1.3)
[2020-01-16 23:38] LABS: ALBUMIN 3.6 g/dL (3.4-5.0); BILIRUBIN - TOTAL 0.67 mg/dL (0.2-1.3); PROTEIN - SERUM 7.4 g/dL (6.4-8.2)
[2020-01-17] MEDS ORDERED: EPIPEN 2-P0.3 MG/0.3 IM (00:37)
[2020-01-17] MEDS ORDERED: STERAPRED DS 1010 MG PO (00:37)
[2020-01-17 01:20] VITALS: BP 145/78
== END 2020-01-17 01:20 | disposition home or self-care (01) ==
LOC: D.ER 20:12
PROVIDERS: Family Medicine
DX: T78.40XA Allergy, unspecified, initial encounter (principal); I25.2 Old myocardial infarction; K21.9 Gastro-esophageal reflux disease without esophagitis

== ENCOUNTER 2020-01-20 06:41 | Emergency (ER) | payer OTHER ==
[~2020-01-20] VITALS: Ht 172.7 cm; Wt 95.5 kg
[~2020-01-20 06:41] MED LIST changes: +EPIPEN 2-P0.3 MG/0.3 IM; +STERAPRED DS 1010 MG PO
[2020-01-20 06:44] VITALS: BP 141/89; Ht 172.7 cm; Wt 95.5 kg
[2020-01-20] MEDS ORDERED: MEDROL8 MG PO (07:13)
[2020-01-20] MEDS ORDERED: FEXOFENADINE H180 MG PO (07:13)
== END 2020-01-20 07:39 | disposition home or self-care (01) ==
LOC: D.ER 06:41
DX: L50.9 Urticaria, unspecified (principal); I25.2 Old myocardial infarction; K21.9 Gastro-esophageal reflux disease without esophagitis